=== PATIENT | female | born 1955 | race American Indian/Alaskan Native ===

== ENCOUNTER 2017-07-29 17:00 | Inpatient (IN) | payer MEDICARE ==
[2017-07-29] MEDS ORDERED: TYLENOL PO ONE (18:47)
[2017-07-29] MEDS ORDERED: ULTRAM PO ONE (18:47)
[2017-07-29 19:08] LABS: Basophils % (Auto) 0.2 % (0.0-1.8); Eosinophils % (Auto) 0.1 % (0.0-4.3); Hematocrit 38.9 % (30.3-42.9); Hemoglobin 12.4 gm/dl (10.1-14.3); Lymphocytes # (Auto) 0.8 K/mm3 (1.2-5.4); Lymphocytes % (Auto) 6.3 % (13.4-35.0); Mean Corpuscular HGB Conc 32 % (30-34); Mean Corpuscular Volume 77 fl (79-97); Monocytes # (Auto) 0.9 K/mm3 (0.0-0.8); Monocytes % (Auto) 6.9 % (0.0-7.3); Platelet Count 290 K/mm3 (140-440); Red Blood Count 5.06 M/mm3 (3.65-5.03); Red Cell Distribution Width 14.9 % (13.2-15.2)
[2017-07-29 19:18] LABS: Mean Corpuscular Hemoglobin 25 pg (28-32)
[2017-07-29 19:34] LABS: Calcium 10.3 mg/dL (8.4-10.2)
[2017-07-29] MEDS ORDERED: TORADOL IV ONE (19:36)
[2017-07-29] MEDS ORDERED: NACL 0.9% 1000 ML 1,000 ML IV ONE (19:36)
--- NOTE | 2017-07-29 19:36 | Emergency Department Report ---
- General Chief complaint: Weakness Stated complaint: WEAKNESS Time Seen by Provider: 07/29/17 18:46 Source: patient Mode of arrival: Stretcher Limitations: No Limitations - History of Present Illness Initial comments: 24 hours of new right-sided weakness and pain. Patient is having pain in her right hand and right knee. Patient does have history of gout in that knee. She has weakness on the right side from a residual stroke. Per the daughter, she has had difficulty moving around over the past 24 hours. So, they brought her to the ER for evaluation. Denies chest pain, shortness of breath, or urinary symptoms. - Related Data Allergies Allergy/AdvReac Type Severity Reaction Status Date / Time No Known Allergies Allergy Unverified 07/29/17 17:15 ED Review of Systems ROS: Stated complaint: WEAKNESS Other details as noted in HPI Comment: All other systems reviewed and negative Musculoskeletal: joint swelling, arthralgia, myalgia Neurological: weakness ED Past Medical Hx - Past Medical History Hx Hypertension: Yes Hx CVA: Yes (left side weakness) Hx Diabetes: Yes - Social History Smoking Status: Former Smoker Substance Use Type: None ED Physical Exam - General Limitations: No Limitations General appearance: alert, in no apparent distress - Head Head exam: Present: atraumatic, normocephalic - Eye Eye exam: Present: normal appearance - ENT ENT exam: Present: mucous membranes moist - Neck Neck exam: Present: normal inspection - Respiratory Respiratory exam: Present: normal lung sounds bilaterally. Absent: respiratory distress - Cardiovascular Cardiovascular Exam: Present: regular rate, tachycardia. Absent: systolic murmur, diastolic murmur, rubs, gallop - GI/Abdominal GI/Abdominal exam: Present: soft, normal bowel sounds. Absent: tenderness - Extremities Exam Extremities exam: Present: joint swelling (Rt knee: 30 degrees ROM. Warm. Joint effusion. Diffuse tenderness. Rt hand with NROM, no pain with finger movement. Mild TTP on 4th MCP.) - Back Exam Back exam: Present: normal inspection - Neurological Exam Neurological exam: Present: alert, oriented X3 - Psychiatric Psychiatric exam: Present: normal affect, normal mood - Skin Skin exam: Present: warm, dry, intact, normal color. Absent: rash ED Course Vital Signs 07/29/17 07/29/17 07/29/17 19:38 19:42 20:05 Temperature 98.1 F Respiratory 20 18 Rate - Joint Aspiration/Injection Time Out Performed: Yes Indications: R/O septic arthritis Side of Body: right Joint Aspirated: knee Ultrasound Guidance: No Skin Prep: sterile prep and drape Local Anesthesia Used: Lidocaine 1% Amount of Anesthesia Used (mls): 3 Fluid Obtained: clear (serous) Total Fluid Obtained (mls): 10 Patient Tolerated Procedure: well, no complications Complications: none ED Medical Decision Making - Lab Data Result diagrams: 07/29/17 18:53 07/29/17 18:53 - EKG Data -: EKG Interpreted by Me EKG shows normal: sinus rhythm, intervals, QRS complexes, ST-T waves Rate: tachycardia - EKG Data Interpretation: other (left axis deviation) - Medical Decision Making 61-year-old female with past medical history of hypertension, CVA that presents to ER with new right-sided weakness and right knee pain. Patient is tachycardic on presentation and hypertensive. She has not had her labetalol today. Right knee was performed with limited range of motion. The knee was aspirated at the bedside. It appears to be clear and serous. 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 Patient has elevated white count and infected urine. Concern for sepsis. Patient was given vancomycin and Zosyn, as well as IV fluids. She'll require admission for further management. She does have an elevated troponin at 0.033. EKG shows no evidence of ischemia. She has been given a full dose aspirin for prophylaxis. Likely it is due to demand ischemia. Patient has no respiratory or chest complaints. Critical care time in (mins) excluding proc time.: 45 Critical care attestation.: If time is entered above; I have spent that time in minutes in the direct care of this critically ill patient, excluding procedure time. ED Disposition Clinical Impression: Sepsis, UTI (urinary tract infection), Right knee pain, Elevated troponin Disposition: DC09 OP ADMIT IP TO THIS HOSP Is pt being admited?: Yes Does the pt Need Aspirin: No Condition: Stable
[2017-07-29] MEDS ORDERED: NACL 0.9% 1000 ML 2,000 ML IV ONE (19:43)
[2017-07-29] MEDS ORDERED: BABY ASPIRIN PO ONE (19:43)
[2017-07-29 19:46] LABS: Chol/HDL Ratio 6.64 %
[2017-07-29 19:59] LABS: Bacteria,Urine 1+ /HPF (Negative); Bilirubin,Urine NEG (Negative); Blood,Urine SM (Negative); Color,Urine Yellow (Yellow); Mucus,Urine FEW /HPF; Protein,Urine <15 mg/dL mg/dL (Negative); Urobilinogen,Urine < 2.0 mg/dL (<2.0)
[2017-07-29] MEDS ORDERED: VANCOMYCIN/0.45 NS 1 GM/250 ML 1 GM/250 ML BAG IV ONE (20:00)
[2017-07-29] MEDS ORDERED: ZOSYN/NS 4.5GM/100ML 4.5 GM/100 ML VIAL IV ONE (20:00)
[2017-07-29] MEDS ORDERED: XYLOCAINE 1% 20 mL ONE (20:04)
[2017-07-29 23:06] LABS: Total Cells Counted 100 /mm3
--- NOTE | 2017-07-29 23:59 | Event Note ---
Date: 07/29/17 See dictated H/p in reports
[2017-07-30] MEDS ORDERED: PERCOCET 5/325 PO PRN (02:53)
[2017-07-30] MEDS ORDERED: MORPHINE IV PRN ×2 (02:53→03:06)
[2017-07-30] MEDS ORDERED: SODIUM CHLORIDE FLUSH SYRINGE 10 ML IV PRN ×2 (02:53→03:06)
[2017-07-30] MEDS ORDERED: ZOFRAN IV PRN ×2 (02:53→03:06)
[2017-07-30] MEDS ORDERED: NACL 0.9% 1000 ML 1,000 ML IV SCH (03:00)
[2017-07-30] MEDS ORDERED: TYLENOL PO PRN (03:06)
--- NOTE | 2017-07-30 03:54 | History and Physical Report ---
CHIEF COMPLAINT: 1. Fever. 2. Right-sided weakness. HISTORY OF PRESENT ILLNESS: A 61-year-old female who presents with fever of 101, from home. Here, the temperature was around 98.5. Also, the patient has discomfort in passing urine. Also, the patient has slight increased right-sided weakness, but on interrogation, the patient stated that her weakness is the same as before from the residual hemiparesis from a previous stroke on the left side. The patient has right-sided hemiparesis. No chills. No recent travel, no shortness of breath. PAST MEDICAL HISTORY: Significant for hypertension, CVA in the past with slight weakness on the left side and also some weakness on the right side, also diabetes. SOCIAL HISTORY: Former smoker. PAST SURGICAL HISTORY: None. FAMILY HISTORY: Hypertension. REVIEW OF SYSTEMS: Significant for left-sided weakness and new onset right-sided weakness, but the patient claims that right-sided weakness has resolved completely. No residual weakness. The patient is not sure whether she had some right-sided weakness, but attributes some weakness in the right lower extremity secondary to pain in the right knee. The patient also has history of gout. The patient has fever at home, temperature of 101; here, there was no fever. Otherwise, review of systems is essentially negative. A 14-point review of systems done. PHYSICAL EXAMINATION: GENERAL: Elderly female, cooperative during examination. VITAL SIGNS: Blood pressure was 113/55, temperature is 98.5, pulse is 110, respirations 12. HEENT: Unremarkable. Pupils equal and reactive. NECK: Supple, no lymphadenopathy, no thyromegaly. LUNGS: Clear to auscultation and percussion. Good air entry. CARDIOVASCULAR: S1, S2 heard. No gallop, no murmur, no rub. Apical impulse in the left fifth intercostal space and midclavicular line. ABDOMEN: Soft and benign. No hepatosplenomegaly. No guarding, no rigidity. Hernial orifices are normal. EXTREMITIES: Left-sided hemiparesis present. Right side, normal power. Gait normal. Mentation normal. CENTRAL NERVOUS SYSTEM: Alert and oriented x 4. SKIN: Normal. LABORATORY DATA: Significant for white count of 12,800, troponin is 0.033. Calcium is 10.3. Urine wbc is 136. BUN and creatinine 69 and 1.6. ASSESSMENT AND PLAN: 1. Sepsis secondary to urinary tract infection. The patient initiated on intravenous Rocephin 2 g intravenous piggyback q.24, pending urine cultures and blood cultures. 2. Hypertension. The patient not on any antihypertensives. We will initiate losartan and Coreg if the blood pressure is higher than the normal. 3. Old cerebrovascular accident, physical therapy. The patient has left-sided weakness. No right-sided weakness. 4. Diabetes coverage for now. Check hemoglobin A1c. Initiate oral hypoglycemics or insulin at discharge. 5. Deep venous thrombosis prophylaxis, heparin 5000 q.12. 6. Urinary tract infection as mentioned and sepsis. Intravenous Rocephin 2 g intravenous piggyback q.24. PROGNOSIS: Fair. Probable admission for 2 to 3 days. No stroke workup was ordered as it was not felt necessary. ADDENDUM 1. Acute kidney injury. The patient's BUN and creatinine is 69 and 1.6. IV fluids for now. We will trend BUN and creatinine. 2. Elevated troponin at 0.033, probably secondary to elevated BUN and creatinine. We will trend the troponin. 3. Hyperlipidemia. We will add statins. JOB# [id number] JOB# [id number] VSM/NTS
--- NOTE | 2017-07-30 03:59 | History and Physical Report ---
ADDENDUM 1. Acute kidney injury. The patient's BUN and creatinine is 69 and 1.6. IV fluids for now. We will trend BUN and creatinine. 2. Elevated troponin at 0.033, probably secondary to elevated BUN and creatinine. We will trend the troponin. 3. Hyperlipidemia. We will add statins. JOB# [id number] VSM/NTS
[2017-07-30 07:00] LABS: Basophils % (Auto) 0.2 % (0.0-1.8); Eosinophils % (Auto) 0.3 % (0.0-4.3); Hematocrit 30.8 % (30.3-42.9); Hemoglobin 9.8 gm/dl (10.1-14.3); Lymphocytes # (Auto) 1.3 K/mm3 (1.2-5.4); Lymphocytes % (Auto) 11.8 % (13.4-35.0); Mean Corpuscular HGB Conc 32 % (30-34); Mean Corpuscular Hemoglobin 25 pg (28-32); Mean Corpuscular Volume 77 fl (79-97); Monocytes # (Auto) 0.9 K/mm3 (0.0-0.8); Monocytes % (Auto) 8.8 % (0.0-7.3); Platelet Count 272 K/mm3 (140-440); Red Blood Count 3.99 M/mm3 (3.65-5.03); Red Cell Distribution Width 14.8 % (13.2-15.2)
[2017-07-30 07:24] LABS: Albumin 3.4 g/dL (3.9-5)
[2017-07-30] MEDS ORDERED: K-DUR PO NR (09:18)
[2017-07-30] MEDS: HumaLOG SUB-Q SCH ×4 (09:34→21:29)
[2017-07-30] MEDS: cefTRIAXone 2 GM in NACL 0.9% 20 ML IV SCH (09:34)
[2017-07-30] MEDS: SODIUM CHLORIDE FLUSH SYRINGE 10 ML IV SCH ×2 (09:36→21:30)
[2017-07-30] MEDS ORDERED: SODIUM CHLORIDE FLUSH SYRINGE 10 ML IV SCH (10:00)
[2017-07-30] MEDS ORDERED: PEPCID PO SCH (10:00)
--- NOTE | 2017-07-30 14:31 | Progress Note ---
Assessment and Plan Sepsis likely due to urinary tract infection - Continue IV Rocephin, follow cultures UTI, on a BX, follow urine culture Hypertension, will start home dose of labetelol, will hold ACEI for JYOTSNA Old CVA with right hemiparesis, old do PT eval Diabetes mellitus type 2, ADA diet, SS I, check A1c JYOTSNA, we'll continue IV fluids, monitor renal function, renal US, if no improvement will consult nephrology - could be fron vasomotor nephropathy vs medication induced Hypokalemia, replete and monitor Elevated troponin, likely due to declining renal function and sepsis -We'll continue to trend troponin - Continue aspirin and Lipitor DVT prophylaxis, with haperin Brief history: 61-year-old female with a history of hypertension, CVA with leftt-sided weakness presented to the hospital with fever and dysuria. Hospitalist Physical exam: GENERAL: Elderly female lying on bed appeared to be in no discomfort. HEENT: Normocephalic. Atraumatic. No conjunctival congestion or icterus. Patient has moist mucous membranes. NECK: Supple. Trachea midline. CHEST/LUNGS: Clear to auscultated bilaterally, breathing nonlabored. No wheezes crackles or rhonchi. HEART/CARDIOVASCULAR: Regular in rate and rhythm. S1 and S2 positive. ABDOMEN: Abdomen is soft, nontender. Patient has normal bowel sounds. SKIN: There is no rash. Warm and dry. NEURO: leftt-sided weakness. Follows command. MUSCULOSKELETAL: No joint effusion or tenderness. EXTRIMITY: No edema, no cyanosis or clubbing. PSYCH: Cooperative. Subjective Date of service: 07/30/17 Interval history: Patient seen and examined. Medical records and medication list reviewed. No acute event overnight noted by the RN. Patient denies any chest pain or difficulty breathing. Patient is tolerating diet. Discussed plan of care at bedside with patient. Objective - Constitutional Vitals: Vital Signs - 12hr 07/30/17 07/30/17 07/30/17 04:35 04:43 08:34 Temperature 99.0 F Pulse Rate 92 H 92 H 97 H Respiratory 20 Rate Blood Pressure 130/73 Blood Pressure 119/68 [Right] O2 Sat by Pulse 98 98 97 Oximetry - Labs CBC & Chem 7: 07/30/17 06:06 07/30/17 06:06 Labs: Abnormal lab results 0407/29/17 07/29/17 Range/Units 18:47 18:53 18:53 WBC 12.8 H (4.5-11.0) K/mm3 RBC 5.06 H (3.65-5.03) M/mm3 Hgb (10.1-14.3) gm/dl MCV 77 L (79-97) fl MCH 25 L (28-32) pg Lymph % (Auto) 6.3 L (13.4-35.0) % Russell % (Auto) (0.0-7.3) % Lymph # 0.8 L (1.2-5.4) K/mm3 Russell # 0.9 H (0.0-0.8) K/mm3 Seg Neutrophils % 86.5 H (40.0-70.0) % Seg Neutrophils # 11.1 H (1.8-7.7) K/mm3 Potassium (3.6-5.0) mmol/L Chloride 90.6 L (98-107) mmol/L Carbon Dioxide (22-30) mmol/L BUN 69 H (7-17) mg/dL Creatinine 1.6 H (0.7-1.2) mg/dL Glucose 190 H (65-100) mg/dL Calcium 10.3 H (8.4-10.2) mg/dL Troponin T 0.033 H (0.00-0.029) ng/mL Albumin (3.9-5) g/dL Triglycerides 196 H (2-149) mg/dL Cholesterol 226 H (50-199) mg/dL LDL Cholesterol Direct 149 H (50-130) mg/dL HDL Cholesterol 34 L (40-59) mg/dL Urine WBC (Auto) 136.0 H (0.0-6.0) /HPF 07/30/17 07/30/17 07/30/17 Range/Units 06:06 06:06 06:06 WBC (4.5-11.0) K/mm3 RBC (3.65-5.03) M/mm3 Hgb 9.8 L (10.1-14.3) gm/dl MCV 77 L (79-97) fl MCH 25 L (28-32) pg Lymph % (Auto) 11.8 L (13.4-35.0) % Russell % (Auto) 8.8 H (0.0-7.3) % Lymph # (1.2-5.4) K/mm3 Russell # 0.9 H (0.0-0.8) K/mm3 Seg Neutrophils % 78.9 H (40.0-70.0) % Seg Neutrophils # 8.4 H (1.8-7.7) K/mm3 Potassium 3.0 L D (3.6-5.0) mmol/L Chloride 97.7 L (98-107) mmol/L Carbon Dioxide 33 H (22-30) mmol/L BUN 60 H (7-17) mg/dL Creatinine 1.6 H (0.7-1.2) mg/dL Glucose 164 H (65-100) mg/dL Calcium (8.4-10.2) mg/dL Troponin T 0.071 H D (0.00-0.029) ng/mL Albumin 3.4 L (3.9-5) g/dL Triglycerides (2-149) mg/dL Cholesterol (50-199) mg/dL LDL Cholesterol Direct (50-130) mg/dL HDL Cholesterol (40-59) mg/dL Urine WBC (Auto) (0.0-6.0) /HPF 07/30/17 Range/Units 10:24 WBC (4.5-11.0) K/mm3 RBC (3.65-5.03) M/mm3 Hgb (10.1-14.3) gm/dl MCV (79-97) fl MCH (28-32) pg Lymph % (Auto) (13.4-35.0) % Russell % (Auto) (0.0-7.3) % Lymph # (1.2-5.4) K/mm3 Russell # (0.0-0.8) K/mm3 Seg Neutrophils % (40.0-70.0) % Seg Neutrophils # (1.8-7.7) K/mm3 Potassium (3.6-5.0) mmol/L Chloride (98-107) mmol/L Carbon Dioxide (22-30) mmol/L BUN (7-17) mg/dL Creatinine (0.7-1.2) mg/dL Glucose (65-100) mg/dL Calcium (8.4-10.2) mg/dL Troponin T 0.058 H (0.00-0.029) ng/mL Albumin (3.9-5) g/dL Triglycerides (2-149) mg/dL Cholesterol (50-199) mg/dL LDL Cholesterol Direct (50-130) mg/dL HDL Cholesterol (40-59) mg/dL Urine WBC (Auto) (0.0-6.0) /HPF
[2017-07-30] MEDS ORDERED: NON-FORMULARY (Fenofibrate [Fenofibrate] 160 MG) PO SCH (15:30)
[2017-07-30] MEDS ORDERED: NORMODYNE PO SCH (16:00)
[2017-07-30] MEDS: HALFPRIN EC PO SCH (17:54)
[2017-07-30] MEDS: NORMODYNE PO SCH (17:57)
[2017-07-30] MEDS: PEPCID PO SCH (21:30)
[2017-07-30] MEDS: TRICOR PO SCH (23:06)
[2017-07-30] MEDS: TYLENOL PO PRN (23:24)
[2017-07-31] MEDS: HumaLOG SUB-Q SCH ×4 (07:30→22:28)
[2017-07-31 08:05] LABS: Calcium 8.9 mg/dL (8.4-10.2)
[2017-07-31] MEDS: NORMODYNE PO SCH (10:24)
[2017-07-31] MEDS: PEPCID PO SCH ×2 (10:24→21:17)
[2017-07-31] MEDS: HALFPRIN EC PO SCH (10:24)
[2017-07-31] MEDS: SODIUM CHLORIDE FLUSH SYRINGE 10 ML IV SCH ×2 (10:26→21:20)
[2017-07-31] MEDS: NACL 0.9% 1000 ML 1,000 ML IV SCH (12:30)
--- NOTE | 2017-07-31 13:09 | Progress Note ---
Assessment and Plan Sepsis likely due to urinary tract infection - Continue IV Rocephin, urine culture was not obtained, will order - blood cx negative so far. will repeat since spiked fever - will also consult ID UTI, on a BX, follow urine culture Hypertension, will start home dose of labetelol, will hold ACEI for JYOTSNA Old CVA with right hemiparesis, old do PT eval Diabetes mellitus type 2, ADA diet, SS I, check A1c JYOTSNA, we'll continue IV fluids, monitor renal function, follow renal US, if no improvement will consult nephrology - could be fron vasomotor nephropathy vs medication induced - renal function remained stable Hypokalemia, replete and monitor Elevated troponin, likely due to declining renal function and sepsis - trended troponin - Continue aspirin and Lipitor - preserved Ef on 2d echo - will consult cardiology Right knee with swelling - possible gout vs arthritis swelling - arthocenthesis done in the ER with + white count - cont tylenol as needed for pain, start on colchicine Physical debility. will consult PT DVT prophylaxis, with svetlana Brief history: 61-year-old female with a history of hypertension, CVA with leftt-sided weakness presented to the hospital with fever and dysuria. Not to have right knee swelling and UTI. Started on abx and s/p arthocethesis in the ER. Hospitalist Physical exam: GENERAL: Elderly female lying on bed appeared to be in no discomfort. HEENT: Normocephalic. Atraumatic. No conjunctival congestion or icterus. Patient has moist mucous membranes. NECK: Supple. Trachea midline. CHEST/LUNGS: Clear to auscultated bilaterally, breathing nonlabored. No wheezes crackles or rhonchi. HEART/CARDIOVASCULAR: Regular in rate and rhythm. S1 and S2 positive. ABDOMEN: Abdomen is soft, nontender. Patient has normal bowel sounds. SKIN: There is no rash. Warm and dry. NEURO: leftt-sided weakness. Follows command. MUSCULOSKELETAL: No joint effusion or tenderness. EXTRIMITY: No edema, no cyanosis or clubbing. PSYCH: Cooperative. Subjective Date of service: 07/31/17 Interval history: Patient seen and examined. Medical records and medication list reviewed. No acute event overnight noted by the RN. Patient denies any chest pain or difficulty breathing. Patient is tolerating diet. spiked fever this am, c/o of rt knee swelling intermittently for year Discussed plan of care at bedside with patient. Objective - Constitutional Vitals: Vital Signs - 12hr 07/31/17 07/31/17 04:39 10:02 Temperature 98.6 F 99.7 F H Pulse Rate 83 98 H Respiratory 18 18 Rate Blood Pressure 105/56 130/66 O2 Sat by Pulse 96 97 Oximetry - Labs CBC & Chem 7: 07/30/17 06:06 07/31/17 07:08 Labs: Abnormal lab results 07/30/17 07/30/17 07/30/17 Range/Units 12:16 14:40 16:59 Potassium (3.6-5.0) mmol/L Carbon Dioxide (22-30) mmol/L BUN (7-17) mg/dL Creatinine (0.7-1.2) mg/dL Glucose (65-100) mg/dL POC Glucose 216 H 216 H (70-105) Troponin T 0.062 H (0.00-0.029) ng/mL 07/30/17 07/31/17 07/31/17 Range/Units 21:22 06:28 07:08 Potassium 3.4 L (3.6-5.0) mmol/L Carbon Dioxide 31 H (22-30) mmol/L BUN 53 H (7-17) mg/dL Creatinine 1.6 H (0.7-1.2) mg/dL Glucose 167 H (65-100) mg/dL POC Glucose 212 H 160 H (70-105) Troponin T (0.00-0.029) ng/mL
[2017-07-31] MEDS: cefTRIAXone 2 GM in NACL 0.9% 20 ML IV SCH (13:36)
[2017-07-31] MEDS: TRICOR PO SCH ×2 (15:09→21:17)
--- NOTE | 2017-07-31 16:52 | Ultrasound Report ---
FINAL REPORT EXAM: US RENAL BILAT HISTORY: ckd TECHNIQUE: Ultrasound examination of the kidneys PRIORS: None. FINDINGS: Visualized right kidney: 12.5 x 6.9 x 6.1 cm. Visualized left kidney: 5.4 x 2.0 x 2.6 cm. Renal cortical thickness: 13 mm right and 8 mm left Focal lesion: Simple appearing cysts in right renal upper and lower poles each measuring 2.6 cm Calculus: None Hydronephrosis: None Perinephric fluid: None Urinary bladder: No evidence of focal abnormality in visible portion. IMPRESSION: Much smaller left kidney may be from atrophy Simple appearing cyst in right kidney
--- NOTE | 2017-07-31 16:56 | Consultation ---
History of Present Illness - Reason for Consult Consult date: 07/31/17 SIRS/right knee swelling Requesting physician: HUMBLE BUTLER - History of Present Illness 61 years old female with history of hypertension, gout and former tobacco abuse ; admitted on 07/29/2017 due to a four-hour history of right-sided weakness and pain. Patient has been complaining of right knee pain and hand pain which she believed it was due to gout. She reports several episodes of right knee swelling due to gouty attacks. She reports subjective fever for the last 3 days. Denies respiratory or urinary symptoms. In the ED, initial temperature 98.1, heart rate 113, respiration 20, O2 sat 94, blood pressure 133/59. Initial white count 12.8. Hemoglobin 12.4. Platelets 290. Creatinine 1.6. Urinalysis showed 136 white blood cells and large leukocyte esterase. Patient underwent drainage of the right knee, synovial fluid which show a cloudy fluid with 2994 white blood cells and 90% segs. Renal ultrasound showed small left kidney. Microbiology: Blood cultures: 07/29 ngtd Synovial cultures: pending Current Antimicrobials: Ceftriaxone 07/30 Past History Past Medical History: hypertension, other (Gout) Past Surgical History: No surgical history Social history: no significant social history Medications and Allergies Allergies Allergy/AdvReac Type Severity Reaction Status Date / Time No Known Allergies Allergy Unverified 07/29/17 17:15 Home Medications Medication Instructions Recorded Confirmed Last Taken Type Benazepril HCl 100 mg PO DAILY 07/30/17 07/30/17 1 Week Ago History ~07/23/17 Fenofibrate 160 mg PO DAILY 07/30/17 07/30/17 1 Week Ago History ~07/23/17 Labetalol HCl 40 mg PO DAILY 07/30/17 07/30/17 1 Day Ago History ~07/29/17 Active Meds: Active Medications Acetaminophen (Tylenol) 650 mg PO Q4H PRN PRN Reason: Pain MILD(1-3)/Fever >100.5/SALAS Last Admin: 07/30/17 23:24 Dose: 650 mg Aspirin (Halfprin Ec) 81 mg PO QDAY [facility] Last Admin: 07/31/17 10:24 Dose: 81 mg Atorvastatin Calcium (Lipitor) 40 mg PO QHS [facility] Last Admin: 07/30/17 21:30 Dose: 40 mg Famotidine (Pepcid) 10 mg PO BID [facility] Last Admin: 07/31/17 10:24 Dose: 10 mg Fenofibrate (Tricor) 145 mg PO DAILY@2200 SHIRLEY Sodium Chloride (Nacl 0.9% 1000 Ml) 1,000 mls @ 100 mls/hr IV DIRECT [facility] Last Admin: 07/31/17 12:30 Dose: 100 mls/hr Ceftriaxone Sodium 2 gm/ (Sodium Chloride) 20 mls @ 20 mls/10 min IV Q24HR [facility] ; Protocol Last Admin: 07/31/17 13:36 Dose: 20 mls/10 min Insulin Human Lispro (Humalog) 0 unit SUB-Q ACHS [facility]; Protocol Last Admin: 07/31/17 13:36 Dose: 3 unit Labetalol HCl (Normodyne) 50 mg PO QDAY [facility] Last Admin: 07/31/17 10:24 Dose: 50 mg Morphine Sulfate (Morphine) 2 mg IV Q4H PRN PRN Reason: Pain, Moderate (4-6) Ondansetron HCl (Zofran) 4 mg IV Q8H PRN PRN Reason: Nausea And Vomiting Oxycodone/Acetaminophen (Percocet 5/325) 1 tab PO Q6H PRN PRN Reason: Pain, Moderate (4-6) Last Admin: 07/31/17 10:10 Dose: 1 tab Sodium Chloride (Sodium Chloride Flush Syringe 10 Ml) 10 ml IV BID [facility] Last Admin: 07/31/17 10:26 Dose: 10 ml Sodium Chloride (Sodium Chloride Flush Syringe 10 Ml) 10 ml IV PRN PRN PRN Reason: LINE FLUSH Review of Systems All systems: negative (as per HPI. 10 point review systems negative) Physical Examination - Physical Exam Narrative exam: General appearance: Alert in NAD, conversant Eyes: anicteric sclerae, moist conjunctivae; no lid-lag; PERRLA HENT: Atraumatic; oropharynx clear with moist mucous membranes and no mucosal ulcerations/no oral thrush; normal hard and soft palate. Normal external ears. Neck: Trachea midline; supple, no thyromegaly or lymphadenopathy Lungs: CTA, with normal respiratory effort and no intercostal retractions CV: RRR, no murmurs Abdomen: Soft, non-tender; no masses or hepatosplenomegaly Extremities: +right knee swelling Skin: Normal temperature, turgor and texture; no rash, ulcers or subcutaneous nodules Psych: Appropriate affect, alert and oriented to person, place and time. Neuro: alert and oriented x 3. Moving all extermities Lines: No CVL / PICC - Constitutional Vitals: Vital Signs Temp Pulse Resp BP Pulse Ox 99.7 F H 98 H 18 130/66 97 07/31/17 10:02 07/31/17 10:02 07/31/17 10:02 07/31/17 10:02 07/31/17 10:02 Temperature -Last 24 Hours Temperature 99.7 F Temperature 98.6 F Temperature 100.2 F Temperature 100.1 F Temperature 98.1 F Results - Labs CBC & Chem 7: 07/30/17 06:06 07/31/17 07:08 Labs: Abnormal lab results 07/30/17 07/30/17 07/31/17 Range/Units 16:59 21:22 06:28 Potassium (3.6-5.0) mmol/L Carbon Dioxide (22-30) mmol/L BUN (7-17) mg/dL Creatinine (0.7-1.2) mg/dL Glucose (65-100) mg/dL POC Glucose 216 H 212 H 160 H (70-105) 07/31/17 07/31/17 Range/Units 07:08 11:51 Potassium 3.4 L (3.6-5.0) mmol/L Carbon Dioxide 31 H (22-30) mmol/L BUN 53 H (7-17) mg/dL Creatinine 1.6 H (0.7-1.2) mg/dL Glucose 167 H (65-100) mg/dL POC Glucose 230 H (70-105) Assessment and Plan Assessment: 1) Sepsis: Present on admission, manifested by fever at home, tachycardia, leukocytosis. Etiology most likely UTI +/- gouty attack. 2) UTI: urine culture was not sent 3) Recurrent right knee edema: ? gout vs. septic knee -synovial fluid which show a cloudy fluid with 2994 white blood cells and 90 % segs. 4) Hypertension 5) Gout Plan: -follow-up blood cultures and synovial fluid cx -send urine culture -obtain C-reactive protein (CRP) and uric acid -synovial fluid was not sent for crystal -XR right knee -continue ceftriaxone Thank you for your consultation, will follow up with you. Verna Jacobson MD Infectious Diseases Specialist [facility] M [phone] O [phone]
[2017-07-31] MEDS: TYLENOL PO PRN (21:18)
[2017-07-31] MEDS: COLCRYS PO SCH (22:25)
[2017-08-01] MEDS: NACL 0.9% 1000 ML 1,000 ML IV SCH (02:00)
[2017-08-01] MEDS: HALFPRIN EC PO SCH (09:03)
[2017-08-01] MEDS: NORMODYNE PO SCH ×2 (09:03→22:32)
[2017-08-01] MEDS: PEPCID PO SCH ×2 (09:03→22:32)
[2017-08-01] MEDS: COLCRYS PO SCH ×2 (09:03→22:33)
[2017-08-01] MEDS: cefTRIAXone 2 GM in NACL 0.9% 20 ML IV SCH (09:03)
[2017-08-01] MEDS: HumaLOG SUB-Q SCH ×5 (09:09→22:33)
[2017-08-01] MEDS: SODIUM CHLORIDE FLUSH SYRINGE 10 ML IV SCH ×2 (09:10→22:40)
--- NOTE | 2017-08-01 12:10 | Consultation ---
History of Present Illness Consult date: 08/01/17 Requesting physician: HUMBLE BUTLER Consult reason: elevated troponin History of present illness: This is a 61-year-old female with history of stroke with left-sided paresis on Coumadin hypertension presents with fever so SIRS and elevated troponin and acute renal insufficiency has been treated medically patient will troponin but denies any chest pain with normal LV function and no palpitations no syncope patient was at home and is able to sit up with a sitter is nonambulatory Past History Past Medical History: hypertension, stroke, other (Gout) Past Surgical History: No surgical history Social history: no significant social history Medications and Allergies Allergies Allergy/AdvReac Type Severity Reaction Status Date / Time No Known Allergies Allergy Unverified 07/29/17 17:15 Home Medications Medication Instructions Recorded Confirmed Last Taken Type Benazepril HCl 40 mg PO DAILY 07/30/17 08/01/17 1 Week Ago History ~07/23/17 Fenofibrate 160 mg PO DAILY 07/30/17 07/30/17 1 Week Ago History ~07/23/17 Labetalol HCl 100 mg PO BID 07/30/17 08/01/17 1 Day Ago History ~07/29/17 Active Meds: Active Medications Acetaminophen (Tylenol) 650 mg PO Q4H PRN PRN Reason: Pain MILD(1-3)/Fever >100.5/SALAS Last Admin: 07/31/17 21:18 Dose: 650 mg Aspirin (Halfprin Ec) 81 mg PO QDAY [facility] Last Admin: 08/01/17 09:03 Dose: 81 mg Atorvastatin Calcium (Lipitor) 40 mg PO QHS [facility] Last Admin: 07/31/17 21:17 Dose: 40 mg Colchicine (Colcrys) 0.6 mg PO BID [facility] Last Admin: 08/01/17 09:03 Dose: 0.6 mg Famotidine (Pepcid) 10 mg PO BID [facility] Last Admin: 08/01/17 09:03 Dose: 10 mg Fenofibrate (Tricor) 145 mg PO DAILY@2200 [facility] Last Admin: 07/31/17 21:17 Dose: 145 mg Sodium Chloride (Nacl 0.9% 1000 Ml) 1,000 mls @ 100 mls/hr IV DIRECT [facility] Last Admin: 08/01/17 02:00 Dose: 100 mls/hr Ceftriaxone Sodium 2 gm/ (Sodium Chloride) 20 mls @ 20 mls/10 min IV Q24HR [facility] ; Protocol Last Admin: 08/01/17 09:03 Dose: 20 mls/10 min Insulin Human Lispro (Humalog) 0 unit SUB-Q ACHS [facility]; Protocol Last Admin: 08/01/17 09:09 Dose: 2 unit Labetalol HCl (Normodyne) 50 mg PO QDAY [facility] Last Admin: 08/01/17 09:03 Dose: 50 mg Morphine Sulfate (Morphine) 2 mg IV Q4H PRN PRN Reason: Pain, Moderate (4-6) Ondansetron HCl (Zofran) 4 mg IV Q8H PRN PRN Reason: Nausea And Vomiting Oxycodone/Acetaminophen (Percocet 5/325) 1 tab PO Q6H PRN PRN Reason: Pain, Moderate (4-6) Last Admin: 07/31/17 10:10 Dose: 1 tab Sodium Chloride (Sodium Chloride Flush Syringe 10 Ml) 10 ml IV BID [facility] Last Admin: 08/01/17 09:10 Dose: 10 ml Sodium Chloride (Sodium Chloride Flush Syringe 10 Ml) 10 ml IV PRN PRN PRN Reason: LINE FLUSH Review of Systems All systems: negative Physical Examination Vital Signs Resp 20 07/29/17 19:38 General appearance: no acute distress, mild distress HEENT: Positive: PERRL Neck: Positive: neck supple, trachea midline Cardiac: Positive: Reg Rate and Rhythm, S1/S2. Negative: Audible Murmur Lungs: Positive: clear to auscultation, Normal Breath Sounds Neuro: Positive: Other (E) Abdomen: Positive: Soft Extremities: Present: normal. Absent: edema Results 07/30/17 06:06 07/31/17 07:08 - Imaging and Cardiology Echo: report reviewed (normal function no significant regurgitation) EKG interpretations - Telemetry EKG Rhythm: Sinus Tachycardia (sinus tacycardia lad lafb non specific st-t) Assessment and Plan SIRS Acute renal insufficiency Hypertension nstemi type 2 cva left sided weakness Recommend BP control with beta blockers continue Coumadin as patient states daily antilipid leixscan in am
[2017-08-01 12:50] LABS: BUN/Creatinine Ratio 26; Blood Urea Nitrogen 29 mg/dL (7-17); Calcium 8.5 mg/dL (8.4-10.2); Hemolysis Index 1
[2017-08-01 12:52] LABS: Platelet Count 315 K/mm3 (140-440)
[2017-08-01 12:56] LABS: Hematocrit 29.7 % (30.3-42.9); Hemoglobin 9.8 gm/dl (10.1-14.3); Mean Corpuscular HGB Conc 33 % (30-34); Mean Corpuscular Volume 76 fl (79-97); Red Blood Count 3.91 M/mm3 (3.65-5.03); Red Cell Distribution Width 14.8 % (13.2-15.2)
[2017-08-01 12:58] LABS: Mean Corpuscular Hemoglobin 25 pg (28-32)
[2017-08-01] MEDS ORDERED: WARFARIN 3 MG PO SCH (13:30)
--- NOTE | 2017-08-01 15:12 | Progress Note ---
Assessment and Plan Sepsis likely due to urinary tract infection - Continue IV Rocephin, urine culture was not obtained, will order - blood cx negative so far. Repeated since spiked fever - ID following UTI, on abx, gm negative rods urine culture Hypertension, will cont home dose of labetelol, will hold ACEI for JYOTSNA Old CVA with right hemiparesis, ordered PT eval Diabetes mellitus type 2, ADA diet, SSI, A1c 5.3 JYOTSNA, we'll continue IV fluids, monitor renal function, follow renal US, if no improvement will consult nephrology - could be fron vasomotor nephropathy vs medication induced - renal function remained stable, Cr 1.3 today Hypokalemia, replete and monitor Elevated troponin, likely due to declining renal function and sepsis - trended troponin - Continue aspirin and Lipitor - preserved Ef on 2d echo - Consulted cardiology, plan for stress test tomorrow Right knee with swelling - possible gout - arthocenthesis done in the ER with + white count - cont tylenol as needed for pain, started on colchicine - elevated uric acid level Physical debility. consulted PT DVT prophylaxis, with haperin Brief history: 61-year-old female with a history of hypertension, CVA with leftt-sided weakness presented to the hospital with fever and dysuria. Not to have right knee swelling and UTI. Started on abx and s/p arthocethesis of the right knee in the ER. Hospitalist Physical exam: GENERAL: Elderly female lying on bed appeared to be in no discomfort. HEENT: Normocephalic. Atraumatic. No conjunctival congestion or icterus. Patient has moist mucous membranes. NECK: Supple. Trachea midline. CHEST/LUNGS: Clear to auscultated bilaterally, breathing nonlabored. No wheezes crackles or rhonchi. HEART/CARDIOVASCULAR: Regular in rate and rhythm. S1 and S2 positive. ABDOMEN: Abdomen is soft, nontender. Patient has normal bowel sounds. SKIN: There is no rash. Warm and dry. NEURO: leftt-sided weakness. Follows command. MUSCULOSKELETAL: No joint effusion or tenderness. EXTRIMITY: No edema, no cyanosis or clubbing. PSYCH: Cooperative. Subjective Date of service: 08/01/17 Interval history: Patient seen and examined. Medical records and medication list reviewed. No acute event overnight noted by the RN. Patient denies any chest pain or difficulty breathing. Patient is tolerating diet. cont to spike fever , c/o of rt knee swelling intermittently for year Discussed plan of care at bedside with patient. Objective - Constitutional Vitals: Vital Signs - 12hr 08/01/17 08/01/17 08/01/17 04:25 07:08 08:39 Temperature 99.9 F H 99.8 F H Pulse Rate 84 86 87 Respiratory 18 18 Rate Blood Pressure 128/71 153/78 O2 Sat by Pulse 93 96 Oximetry 08/01/17 08/01/17 08/01/17 09:03 09:07 10:00 Temperature 100.3 F H Pulse Rate 96 H 92 H Respiratory Rate Blood Pressure 140/77 140/77 O2 Sat by Pulse Oximetry 08/01/17 12:13 Temperature 97.9 F Pulse Rate Respiratory 18 Rate Blood Pressure 142/74 O2 Sat by Pulse Oximetry - Labs CBC & Chem 7: 08/01/17 12:17 08/01/17 12:17 Labs: Abnormal lab results 07/29/17 07/31/17 07/31/17 Range/Units 20:16 17:31 19:16 Hgb (10.1-14.3) gm/dl Hct (30.3-42.9) % MCV (79-97) fl MCH (28-32) pg BUN (7-17) mg/dL Glucose (65-100) mg/dL POC Glucose 195 H (70-105) Uric Acid (3.5-7.6) mg/dL C-Reactive Protein 20.00 H (0.00-1.30) mg/dL Fluid Glucose 162 H (40-70) mg/dL 07/31/17 07/31/17 08/01/17 Range/Units 19:16 21:46 05:22 Hgb (10.1-14.3) gm/dl Hct (30.3-42.9) % MCV (79-97) fl MCH (28-32) pg BUN (7-17) mg/dL Glucose (65-100) mg/dL POC Glucose 228 H 178 H (70-105) Uric Acid 9.5 H (3.5-7.6) mg/dL C-Reactive Protein (0.00-1.30) mg/dL Fluid Glucose (40-70) mg/dL 08/01/17 08/01/17 08/01/17 Range/Units 12:17 12:17 12:19 Hgb 9.8 L (10.1-14.3) gm/dl Hct 29.7 L (30.3-42.9) % MCV 76 L (79-97) fl MCH 25 L (28-32) pg BUN 29 H (7-17) mg/dL Glucose 196 H (65-100) mg/dL POC Glucose 207 H (70-105) Uric Acid (3.5-7.6) mg/dL C-Reactive Protein (0.00-1.30) mg/dL Fluid Glucose (40-70) mg/dL
[2017-08-01 16:40] LABS: INR 1.27 (0.87-1.13)
[2017-08-01] MEDS: HumuLIN R SUB-Q SCH ×2 (17:37→22:34)
[2017-08-01] MEDS: COUMADIN PO SCH (17:42)
[2017-08-01] MEDS: TRICOR PO SCH (22:31)
[2017-08-02] MEDS: HumaLOG SUB-Q SCH ×4 (07:56→23:30)
[2017-08-02] MEDS: HumuLIN R SUB-Q SCH ×4 (07:57→23:14)
[2017-08-02] MEDS ORDERED: LEXISCAN IV ONE ×2 (08:04→08:09)
[2017-08-02] MEDS: COLCRYS PO SCH ×2 (11:03→23:29)
--- NOTE | 2017-08-02 11:35 | Progress Note ---
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 has not been tested, will setup to followup in [facility] after rehab. increase labetalol 200 mg twice a day hold Lane inhibitors and monitor blood pressure patient had no significant ischemia on stress test Subjective Date of service: 08/02/17 Principal diagnosis: abnl trop Interval history: pt has intermittent right sided pain. Objective Vital Signs Temp Pulse Resp BP Pulse Ox 08/02/17 09:43 100 H 149/72 08/02/17 09:42 102 H 151/69 08/02/17 09:41 104 H 147/74 08/02/17 09:40 100 H 155/77 08/02/17 09:39 103 H 149/78 08/02/17 09:11 83 156/81 08/02/17 05:01 98.9 F 78 18 134/72 94 08/02/17 00:11 99.8 F H 85 18 161/77 94 08/01/17 22:32 93 H 147/68 08/01/17 19:48 101.5 F H 93 H 18 147/68 97 08/01/17 16:20 99.7 F H 94 H 18 136/73 94 08/01/17 12:13 97.9 F 18 142/74 - Physical Examination General: No Apparent Distress HEENT: Positive: PERRL Neck: Positive: neck supple, trachea midline Cardiac: Positive: Reg Rate and Rhythm Lungs: Positive: clear to auscultation Neuro: Positive: Other (E) Abdomen: Positive: Soft Extremities: Present: normal. Absent: edema - Labs and Meds Coagulation 08/01/17 Range/Units 16:01 PT 16.6 H (12.2-14.9) Sec. INR 1.27 H (0.87-1.13) CBC 08/01/17 Range/Units 12:17 WBC 8.8 (4.5-11.0) K/mm3 RBC 3.91 (3.65-5.03) M/mm3 Hgb 9.8 L (10.1-14.3) gm/dl Hct 29.7 L (30.3-42.9) % Plt Count 315 (140-440) K/mm3 Comprehensive Metabolic Panel 08/01/17 Range/Units 12:17 Sodium 138 (137-145) mmol/L Potassium 3.8 (3.6-5.0) mmol/L Chloride 99.2 (98-107) mmol/L Carbon Dioxide 27 (22-30) mmol/L BUN 29 H (7-17) mg/dL Creatinine 1.1 (0.7-1.2) mg/dL Glucose 196 H (65-100) mg/dL Calcium 8.5 (8.4-10.2) mg/dL - Imaging and Cardiology Pharmacologic stress test: report reviewed (no signficant ischemia noted normal lv function) Echo: report reviewed (normal function no significant regurgitation)
[2017-08-02] MEDS ORDERED: CITRATE OF MAGNESIA PO ONE ×2 (12:00→16:00)
--- NOTE | 2017-08-02 12:17 | Treadmill Report ---
NUCLEAR PERFUSION STUDY REASON FOR STUDY: Abnormal troponin. READING PHYSICIAN: Duane Camejo MD IMAGING PROTOCOL: The patient received 10 mCi of Technetium 99m Tetrofosmin for resting image and 28 mCi of Technetium 99m Tetrofosmin for stress imaging. The imaging for the whole procedure was completed 30-90 minutes following the initial injection of Technetium 99m tetrofosmin. The SPECT imaging in the 180 degree arc was performed in the right anterior oblique projection. Computerized reconstruction of the images was performed for analysis. IMAGING RESULTS: Normal cavity size from stress to rest. Normal distribution of radionuclide in the anterior, inferior, septal, and apical regions. Gated SPECT, EF 65% with no wall motion abnormality. The patient infused Lexiscan with no EKG changes. SUMMARY: 1. Negative Lexiscan EKG. 2. Normal rest and stress myocardial perfusion scan. No significant ischemia. No wall motion abnormalities. Gated SPECT, EF 65%. JOB# [id number] ANNA/ELLIOTT
[2017-08-02 13:20] LABS: INR 1.29 (0.87-1.13)
[2017-08-02 13:32] LABS: BUN/Creatinine Ratio 25; Blood Urea Nitrogen 25 mg/dL (7-17); Calcium 8.6 mg/dL (8.4-10.2); Hemolysis Index 0
--- NOTE | 2017-08-02 14:35 | Progress Note ---
Assessment and Plan Sepsis likely due to urinary tract infection - Continue IV Rocephin, urine culture growing gm negative rods - blood cx negative so far. Repeated again since spiked fever, will follow - ID following UTI, on abx, gm negative rods urine culture Hypertension,increased dose of labetelol, will cont to hold ACEI for JYOTSNA Old CVA with right hemiparesis, ordered PT eval Diabetes mellitus type 2, ADA diet, SSI, A1c 5.3 JYOTSNA, we'll continue IV fluids, monitor renal function, follow renal US, if no improvement will consult nephrology - could be fron vasomotor nephropathy vs medication induced - renal function remained stable, Cr level normal since 08/01 Hypokalemia, replete and monitor Elevated troponin, likely due to declining renal function and sepsis - Continue aspirin and Lipitor - preserved Ef on 2d echo - Consulted cardiology, negative stress test today Right knee with swelling - possible gout - arthocenthesis done in the ER with + white count - cont tylenol as needed for pain, started on colchicine - elevated uric acid level Physical debility. consulted PT, patient wants to go for JHON DVT prophylaxis, with svetlana Brief history: 61-year-old female with a history of hypertension, CVA with leftt-sided weakness presented to the hospital with fever and dysuria. Not to have right knee swelling and UTI. Started on abx and s/p arthocethesis of the right knee in the ER. Hospitalist Physical exam: GENERAL: Elderly female lying on bed appeared to be in no discomfort. HEENT: Normocephalic. Atraumatic. No conjunctival congestion or icterus. Patient has moist mucous membranes. NECK: Supple. Trachea midline. CHEST/LUNGS: Clear to auscultated bilaterally, breathing nonlabored. No wheezes crackles or rhonchi. HEART/CARDIOVASCULAR: Regular in rate and rhythm. S1 and S2 positive. ABDOMEN: Abdomen is soft, nontender. Patient has normal bowel sounds. SKIN: There is no rash. Warm and dry. NEURO: leftt-sided weakness. Follows command. MUSCULOSKELETAL: No joint effusion or tenderness. EXTRIMITY: No edema, no cyanosis or clubbing. PSYCH: Cooperative. Subjective Date of service: 08/02/17 Principal diagnosis: abnl trop Interval history: Patient seen and examined. Medical records and medication list reviewed. No acute event overnight noted by the RN. Patient denies any chest pain or difficulty breathing. Patient is tolerating diet. Discussed plan of care at bedside with patient and family. Objective - Constitutional Vitals: Vital Signs - 12hr 08/02/17 08/02/17 08/02/17 05:01 08:01 08:02 Temperature 98.9 F Pulse Rate 78 84 79 Respiratory 18 18 Rate Blood Pressure 134/72 142/74 O2 Sat by Pulse 94 94 93 Oximetry 08/02/17 08/02/17 08/02/17 09:11 09:39 09:40 Temperature Pulse Rate 83 103 H 100 H Respiratory Rate Blood Pressure 156/81 149/78 155/77 O2 Sat by Pulse Oximetry 08/02/17 08/02/17 08/02/17 09:41 09:42 09:43 Temperature Pulse Rate 104 H 102 H 100 H Respiratory Rate Blood Pressure 147/74 151/69 149/72 O2 Sat by Pulse Oximetry - Labs CBC & Chem 7: 08/01/17 12:17 08/02/17 11:34 Labs: Abnormal lab results 08/01/17 08/01/17 08/01/17 Range/Units 16:01 16:31 21:35 PT 16.6 H (12.2-14.9) Sec. INR 1.27 H (0.87-1.13) BUN (7-17) mg/dL Glucose (65-100) mg/dL POC Glucose 254 H 194 H (70-105) 08/02/17 08/02/17 08/02/17 Range/Units 06:12 11:34 11:34 PT 16.8 H (12.2-14.9) Sec. INR 1.29 H (0.87-1.13) BUN 25 H (7-17) mg/dL Glucose 162 H (65-100) mg/dL POC Glucose 158 H (70-105)
--- NOTE | 2017-08-02 15:25 | Progress Note ---
Assessment and Plan Assessment: 1) Sepsis: still fever. Leukocytosis resolved. Etiology most likely UTI +/- gouty attack. -CRP=20 -Uric acid 9.5 2) UTI: urine culture + E coli. Renal US simple cyst right kidney 3) Recurrent right knee edema: ? gout vs. septic knee -synovial fluid which show a cloudy fluid with 2994 white blood cells and 90 % segs. 4) Hypertension 5)Gout Plan: -follow-up repeat blood cultures -synovial fluid was not sent for crystal -continue ceftriaxone D4 -check CXR -monitor fever Thank you for your consultation, will follow up with you. Verna Jacobson MD Infectious Diseases Specialist [facility] [id number] [phone] Subjective Date of service: 08/02/17 Principal diagnosis: abnl trop Interval history: Feels better no complaints. Had a fever 101.5 last night. Microbiology: Blood cultures: 07/29 ngtd 08/01 ngtd Synovial cultures: neg urine cx: 07/31 E coli pansen Current Antimicrobials: Ceftriaxone 07/30 Objective - Exam Narrative Exam: General appearance: Alert in NAD, conversant Eyes: anicteric sclerae, moist conjunctivae; no lid-lag; PERRLA HENT: Atraumatic; oropharynx clear with moist mucous membranes and no mucosal ulcerations/no oral thrush; normal hard and soft palate. Normal external ears. Neck: Trachea midline; supple, no thyromegaly or lymphadenopathy Lungs: CTA, with normal respiratory effort and no intercostal retractions CV: RRR, no murmurs Abdomen: Soft, non-tender; no masses or hepatosplenomegaly Extremities: +right knee swelling less Skin: Normal temperature, turgor and texture; no rash, ulcers or subcutaneous nodules Psych: Appropriate affect, alert and oriented to person, place and time. Neuro: alert and oriented x 3. Moving all extermities Lines: No CVL / PICC - Constitutional Vitals: Vital Signs Temp Pulse Resp BP Pulse Ox 98.9 F 100 H 18 149/72 93 08/02/17 05:01 08/02/17 09:43 08/02/17 08:01 08/02/17 09:43 08/02/17 08:02 Temperature -Last 24 Hours Temperature 98.9 F Temperature 99.8 F Temperature 101.5 F Temperature 99.7 F - Labs CBC & Chem 7: 08/01/17 12:17 08/02/17 11:34 Labs: Abnormal lab results 08/01/17 08/01/17 08/01/17 Range/Units 16:01 16:31 21:35 PT 16.6 H (12.2-14.9) Sec. INR 1.27 H (0.87-1.13) BUN (7-17) mg/dL Glucose (65-100) mg/dL POC Glucose 254 H 194 H (70-105) 08/02/17 08/02/17 08/02/17 Range/Units 06:12 11:34 11:34 PT 16.8 H (12.2-14.9) Sec. INR 1.29 H (0.87-1.13) BUN 25 H (7-17) mg/dL Glucose 162 H (65-100) mg/dL POC Glucose 158 H (70-105)
[2017-08-02] MEDS: NORMODYNE PO SCH ×2 (17:00→23:31)
[2017-08-02] MEDS: PEPCID PO SCH ×2 (17:02→23:30)
[2017-08-02] MEDS: COUMADIN PO SCH (17:07)
[2017-08-02] MEDS: HALFPRIN EC PO SCH (17:07)
[2017-08-02] MEDS: SODIUM CHLORIDE FLUSH SYRINGE 10 ML IV SCH ×2 (17:15→23:33)
[2017-08-02] MEDS: cefTRIAXone 2 GM in NACL 0.9% 20 ML IV SCH (17:17)
--- NOTE | 2017-08-02 17:47 | XRay Report ---
FINAL REPORT EXAM: XR CHEST 1V AP HISTORY: eval for pneumonia, new fever TECHNIQUE: upright single view chest PRIORS: None. FINDINGS: Cardiac and mediastinal contours are unremarkable. No focal pulmonary infiltrate is identified. No pleural fluid collection seen. Pulmonary vasculature is unremarkable. IMPRESSION: Negative single-view chest
[2017-08-02] MEDS: TRICOR PO SCH (23:29)
[2017-08-03 07:20] LABS: INR 1.42 (0.87-1.13)
[2017-08-03 07:29] LABS: BUN/Creatinine Ratio 22; Blood Urea Nitrogen 22 mg/dL (7-17); Calcium 8.7 mg/dL (8.4-10.2); Hemolysis Index 4
[2017-08-03] MEDS: HumaLOG SUB-Q SCH ×2 (08:36→12:41)
[2017-08-03] MEDS: HumuLIN R SUB-Q SCH ×4 (08:36→22:46)
[2017-08-03] MEDS: COLCRYS PO SCH ×2 (09:08→22:06)
[2017-08-03] MEDS: PEPCID PO SCH ×2 (09:08→22:06)
[2017-08-03] MEDS: HALFPRIN EC PO SCH (09:08)
[2017-08-03] MEDS: cefTRIAXone 2 GM in NACL 0.9% 20 ML IV SCH (09:09)
[2017-08-03] MEDS: SODIUM CHLORIDE FLUSH SYRINGE 10 ML IV SCH ×2 (09:09→22:08)
[2017-08-03] MEDS: NORMODYNE PO SCH ×2 (09:09→22:07)
--- NOTE | 2017-08-03 13:57 | Progress Note ---
Assessment and Plan Assessment: SIRS / UTI Acute renal insufficiency - improving Hypertension nstemi type 2 CVA with residual left sided weakness Plan: Coumadin resumed per primary. Currently stable cardiac status. Pt may discharge home from cardiology standpoint. Follow up in our [place] office on 08/07/2017 @ 10:00AM for INR check. Follow up in our [place] office with Dr. Camejo on 08/10/2017 @ 2:00PM. The patient has been seen in conjunction with Dr. DARIO West who agrees with the assessment and plan of care. Subjective Date of service: 08/03/17 Principal diagnosis: abnl trop Interval history: pt resting comfortably in bed, no current cardiac complaints. states she feels ready to discharge today. Objective Last Vital Signs Temp 98.0 F 08/03/17 11:46 Pulse 72 08/03/17 11:46 Resp 18 08/03/17 11:46 BP 157/71 08/03/17 11:46 Pulse Ox 96 08/03/17 11:46 - Physical Examination General: No Apparent Distress HEENT: Positive: PERRL Neck: Positive: neck supple, trachea midline Cardiac: Positive: Reg Rate and Rhythm, S1/S2 Lungs: Positive: clear to auscultation Neuro: Positive: Other (right hemiparesis) Abdomen: Positive: Soft Extremities: Present: normal. Absent: edema - Labs and Meds Coagulation 08/03/17 Range/Units 06:33 PT 18.2 H (12.2-14.9) Sec. INR 1.42 H (0.87-1.13) Comprehensive Metabolic Panel 08/03/17 Range/Units 06:33 Sodium 139 (137-145) mmol/L Potassium 4.0 (3.6-5.0) mmol/L Chloride 99.7 (98-107) mmol/L Carbon Dioxide 26 (22-30) mmol/L BUN 22 H (7-17) mg/dL Creatinine 1.0 (0.7-1.2) mg/dL Glucose 155 H (65-100) mg/dL Calcium 8.7 (8.4-10.2) mg/dL - Imaging and Cardiology Echo: report reviewed (normal function no significant regurgitation) - Telemetry EKG Rhythm: Sinus Rhythm
--- NOTE | 2017-08-03 13:57 | Progress Note ---
Assessment and Plan Assessment: 1) Sepsis: fever resolved. Leukocytosis resolved. Etiology most likely UTI +/- gouty attack. -CRP=20 -Uric acid 9.5 -CXR neg 2) UTI: urine culture + E coli. Renal US simple cyst right kidney 3) Recurrent right knee edema: ? gout vs. septic knee -synovial fluid which show a cloudy fluid with 2994 white blood cells and 90 % segs. 4) Hypertension 5)Gout Plan: -continue ceftriaxone D5 of 7 -monitor fever -if she is going home ok to finish 7 days with levaquin Thank you for your consultation, will follow up with you. Verna Jacobson MD Infectious Diseases Specialist [facility] [phone] Subjective Date of service: 08/03/17 Principal diagnosis: abnl trop Interval history: Feels better no complaints. NO fever for 24h. Microbiology: Blood cultures: 07/29 ngtd 08/01 ngtd Synovial cultures: neg urine cx: 07/31 E coli pansen Current Antimicrobials: Ceftriaxone 07/30 Objective - Exam Narrative Exam: General appearance: Alert in NAD, conversant Eyes: anicteric sclerae, moist conjunctivae; no lid-lag; PERRLA HENT: Atraumatic; oropharynx clear with moist mucous membranes and no mucosal ulcerations/no oral thrush; normal hard and soft palate. Normal external ears. Neck: Trachea midline; supple, no thyromegaly or lymphadenopathy Lungs: CTA, with normal respiratory effort and no intercostal retractions CV: RRR, no murmurs Abdomen: Soft, non-tender; no masses or hepatosplenomegaly Extremities: +right knee swelling less Skin: Normal temperature, turgor and texture; no rash, ulcers or subcutaneous nodules Psych: Appropriate affect, alert and oriented to person, place and time. Neuro: alert and oriented x 3. Moving all extermities Lines: No CVL / PICC - Constitutional Vitals: Vital Signs Temp Pulse Resp BP Pulse Ox 98.0 F 72 18 157/71 96 08/03/17 11:46 08/03/17 11:46 08/03/17 11:46 08/03/17 11:46 08/03/17 11:46 Temperature -Last 24 Hours Temperature 98.0 F Temperature 98.1 F Temperature 98.8 F Temperature 98.8 F Temperature 98.1 F - Labs CBC & Chem 7: 08/01/17 12:17 08/03/17 06:33 Labs: Abnormal lab results 08/02/17 08/02/17 08/03/17 Range/Units 17:51 21:24 06:06 PT (12.2-14.9) Sec. INR (0.87-1.13) BUN (7-17) mg/dL Glucose (65-100) mg/dL POC Glucose 208 H 239 H 143 H (70-105) 08/03/17 08/03/17 Range/Units 06:33 06:33 PT 18.2 H (12.2-14.9) Sec. INR 1.42 H (0.87-1.13) BUN 22 H (7-17) mg/dL Glucose 155 H (65-100) mg/dL POC Glucose (70-105)
--- NOTE | 2017-08-03 15:46 | Progress Note ---
Assessment and Plan Sepsis likely due to urinary tract infection - Continue IV Rocephin, urine culture growing gm negative rods - blood cx negative so far. - ID following UTI, on abx, gm negative rods urine culture Hypertension,increased dose of labetelol, will cont to hold ACEI for JYOTSNA Old CVA with right hemiparesis, ordered PT eval, need JHON - cont aspirin, lipitor and coumadin resumed per cardiology recommendation Diabetes mellitus type 2, ADA diet, SSI, A1c 5.3 JYOTSNA, we'll continue IV fluids, monitor renal function, follow renal US, if no improvement will consult nephrology - could be fron vasomotor nephropathy vs medication induced - renal function remained stable, Cr level normal since 08/01 Hypokalemia, replete and monitor Elevated troponin, likely due to declining renal function and sepsis - Continue aspirin and Lipitor - preserved Ef on 2d echo - Consulted cardiology, negative stress test Right knee with swelling - possible gout - arthocenthesis done in the ER with + white count - cont tylenol as needed for pain, started on colchicine - elevated uric acid level Physical debility. consulted PT, patient wants to go for JHON DVT prophylaxis, with coumadin Brief history: 61-year-old female with a history of hypertension, CVA with leftt-sided weakness presented to the hospital with fever and dysuria. Not to have right knee swelling and UTI. Started on abx and s/p arthocethesis of the right knee in the ER. Hospitalist Physical exam: GENERAL: Elderly female lying on bed appeared to be in no discomfort. HEENT: Normocephalic. Atraumatic. No conjunctival congestion or icterus. Patient has moist mucous membranes. NECK: Supple. Trachea midline. CHEST/LUNGS: Clear to auscultated bilaterally, breathing nonlabored. No wheezes crackles or rhonchi. HEART/CARDIOVASCULAR: Regular in rate and rhythm. S1 and S2 positive. ABDOMEN: Abdomen is soft, nontender. Patient has normal bowel sounds. SKIN: There is no rash. Warm and dry. NEURO: leftt-sided weakness. Follows command. MUSCULOSKELETAL: No joint effusion or tenderness. EXTRIMITY: No edema, no cyanosis or clubbing. PSYCH: Cooperative. Subjective Date of service: 08/03/17 Principal diagnosis: abnl trop Interval history: Patient seen and examined. Medical records and medication list reviewed. No acute event overnight noted by the RN. Patient denies any chest pain or difficulty breathing. Patient is tolerating diet. Discussed plan of care at bedside with patient, afebrile. Objective - Constitutional Vitals: Vital Signs - 12hr 08/03/17 08/03/17 08/03/17 04:31 08:28 08:40 Temperature 98.8 F 98.1 F Pulse Rate 77 75 Pulse Rate [ 74 From Monitor] Respiratory 18 18 16 Rate Blood Pressure 147/69 137/66 O2 Sat by Pulse 97 96 98 Oximetry 08/03/17 08/03/17 10:00 11:46 Temperature 98.0 F Pulse Rate 75 72 Pulse Rate [ From Monitor] Respiratory 18 Rate Blood Pressure 157/71 O2 Sat by Pulse 96 Oximetry - Labs CBC & Chem 7: 08/01/17 12:17 08/03/17 06:33 Labs: Abnormal lab results 08/02/17 08/02/17 08/03/17 Range/Units 17:51 21:24 06:06 PT (12.2-14.9) Sec. INR (0.87-1.13) BUN (7-17) mg/dL Glucose (65-100) mg/dL POC Glucose 208 H 239 H 143 H (70-105) 08/03/17 08/03/17 08/03/17 Range/Units 06:33 06:33 11:56 PT 18.2 H (12.2-14.9) Sec. INR 1.42 H (0.87-1.13) BUN 22 H (7-17) mg/dL Glucose 155 H (65-100) mg/dL POC Glucose 167 H (70-105)
[2017-08-03] MEDS: COUMADIN PO SCH (16:43)
[2017-08-03] MEDS: TRICOR PO SCH (22:07)
[2017-08-04 07:07] LABS: INR 1.59 (0.87-1.13)
[2017-08-04] MEDS: HALFPRIN EC PO SCH (10:32)
[2017-08-04] MEDS: NORMODYNE PO SCH ×3 (10:32→21:13)
[2017-08-04] MEDS: cefTRIAXone 2 GM in NACL 0.9% 20 ML IV SCH (10:32)
[2017-08-04] MEDS: COLCRYS PO SCH ×2 (10:32→21:09)
[2017-08-04] MEDS: PEPCID PO SCH ×2 (10:32→21:09)
[2017-08-04] MEDS: SODIUM CHLORIDE FLUSH SYRINGE 10 ML IV SCH ×2 (10:33→21:13)
--- NOTE | 2017-08-04 11:24 | Progress Note ---
Assessment and Plan Sepsis likely due to urinary tract infection - Continue IV Rocephin, urine culture growing gm negative rods - blood cx negative so far. - ID following UTI, on abx day 6 of 7 with rocephin, gm negative rods urine culture Hypertension,increased dose of labetelol, will cont to hold ACEI for JYOTSNA Old CVA with right hemiparesis, ordered PT eval, need JHON - cont aspirin, lipitor and coumadin resumed per cardiology recommendation Diabetes mellitus type 2, ADA diet, SSI, A1c 5.3 JYOTSNA, we'll continue IV fluids, monitor renal function, follow renal US, if no improvement will consult nephrology - could be fron vasomotor nephropathy vs medication induced - renal function remained stable, Cr level normal since 08/01 Hypokalemia, repleted and monitor Elevated troponin, likely due to declining renal function and sepsis - Continue aspirin and Lipitor - preserved Ef on 2d echo - Consulted cardiology, negative stress test Right knee with swelling - possible gout - arthocenthesis done in the ER with + white count - cont tylenol as needed for pain, started on colchicine - elevated uric acid level Physical debility. consulted PT, recommended JHON DVT prophylaxis, with coumadin Brief history: 61-year-old female with a history of hypertension, CVA with leftt-sided weakness presented to the hospital with fever and dysuria. Not to have right knee swelling and UTI. Started on abx and s/p arthocethesis of the right knee in the ER. Hospitalist Physical exam: GENERAL: Elderly female lying on bed appeared to be in no discomfort. HEENT: Normocephalic. Atraumatic. No conjunctival congestion or icterus. Patient has moist mucous membranes. NECK: Supple. Trachea midline. CHEST/LUNGS: Clear to auscultated bilaterally, breathing nonlabored. No wheezes crackles or rhonchi. HEART/CARDIOVASCULAR: Regular in rate and rhythm. S1 and S2 positive. ABDOMEN: Abdomen is soft, nontender. Patient has normal bowel sounds. SKIN: There is no rash. Warm and dry. NEURO: leftt-sided weakness. Follows command. MUSCULOSKELETAL: No joint effusion or tenderness. EXTRIMITY: No edema, no cyanosis or clubbing. PSYCH: Cooperative. Subjective Date of service: 08/04/17 Principal diagnosis: abnl trop Interval history: Patient seen and examined. Medical records and medication list reviewed. No acute event overnight noted by the RN. Patient denies any chest pain or difficulty breathing. Patient is tolerating diet. Discussed plan of care at bedside with patient, afebrile. Objective - Constitutional Vitals: Vital Signs - 12hr 08/04/17 08/04/17 08/04/17 00:26 04:36 10:32 Temperature 99.4 F 98.5 F Pulse Rate 78 73 Respiratory 20 20 Rate Blood Pressure 160/67 172/78 172/78 O2 Sat by Pulse 95 93 Oximetry - Labs CBC & Chem 7: 08/01/17 12:17 08/03/17 06:33 Labs: Abnormal lab results 08/03/17 08/03/17 08/03/17 Range/Units 11:56 16:42 21:49 PT (12.2-14.9) Sec. INR (0.87-1.13) POC Glucose 167 H 228 H 210 H (70-105) 08/04/17 08/04/17 08/04/17 Range/Units 06:01 06:39 11:15 PT 19.9 H (12.2-14.9) Sec. INR 1.59 H (0.87-1.13) POC Glucose 154 H 203 H (70-105)
[2017-08-04] MEDS: HumuLIN R SUB-Q SCH ×4 (13:52→22:21)
[2017-08-04] MEDS: COUMADIN PO SCH (18:40)
[2017-08-04] MEDS: NACL 0.9% 1000 ML 1,000 ML IV SCH (19:52)
[2017-08-04] MEDS: TRICOR PO SCH (21:09)
[2017-08-05] MEDS: NACL 0.9% 1000 ML 1,000 ML IV SCH (05:58)
[2017-08-05] MEDS: APRESOLINE PO SCH ×3 (05:58→23:14)
[2017-08-05 07:14] LABS: INR 1.81 (0.87-1.13)
[2017-08-05] MEDS: HumuLIN R SUB-Q SCH ×4 (08:07→23:15)
[2017-08-05] MEDS ORDERED: cefTRIAXone 1 GM in NACL 0.9% 20 ML IV SCH (10:00)
[2017-08-05] MEDS: COLCRYS PO SCH ×2 (11:08→23:14)
[2017-08-05] MEDS: HALFPRIN EC PO SCH (11:09)
[2017-08-05] MEDS: NORVASC PO SCH (11:10)
[2017-08-05] MEDS: PEPCID PO SCH ×2 (11:10→23:15)
[2017-08-05] MEDS: NORMODYNE PO SCH ×2 (11:11→23:15)
[2017-08-05] MEDS: SODIUM CHLORIDE FLUSH SYRINGE 10 ML IV SCH ×2 (14:12→23:16)
--- NOTE | 2017-08-05 14:30 | Progress Note ---
Assessment and Plan Assessment: 1) Sepsis: fever resolved. Leukocytosis resolved. Etiology most likely UTI +/- gouty attack. -CRP=20 -Uric acid 9.5 -CXR neg 2) UTI: urine culture + E coli. Renal US simple cyst right kidney 3) Recurrent right knee edema: ? gout vs. septic knee -synovial fluid which show a cloudy fluid with 2994 white blood cells and 90 % segs. 4) Hypertension 5)Gout Plan: -stop ceftriaxone D7 of 7 -monitor off antibiotics -PT I am signing off Thank you for your consultation, will follow up with you. Verna Jacobson MD Infectious Diseases Specialist [facility] ([facility]) M [phone] O [phone] Subjective Date of service: 08/05/17 Principal diagnosis: abnl trop Interval history: Feels better no complaints. NO fever for 72h. Microbiology: Blood cultures: 07/29 ngtd 08/01 ngtd Synovial cultures: neg urine cx: 07/31 E coli pansen Current Antimicrobials: Ceftriaxone 07/30 Objective - Exam Narrative Exam: General appearance: Alert in NAD, conversant Eyes: anicteric sclerae, moist conjunctivae; no lid-lag; PERRLA HENT: Atraumatic; oropharynx clear with moist mucous membranes and no mucosal ulcerations/no oral thrush; normal hard and soft palate. Normal external ears. Neck: Trachea midline; supple, no thyromegaly or lymphadenopathy Lungs: CTA, with normal respiratory effort and no intercostal retractions CV: RRR, no murmurs Abdomen: Soft, non-tender; no masses or hepatosplenomegaly Extremities: +right knee swelling less Skin: Normal temperature, turgor and texture; no rash, ulcers or subcutaneous nodules Psych: Appropriate affect, alert and oriented to person, place and time. Neuro: alert and oriented x 3. Moving all extermities Lines: No CVL / PICC - Constitutional Vitals: Vital Signs Temp Pulse Resp BP Pulse Ox 98.6 F 77 18 133/73 99 08/05/17 11:36 08/05/17 14:13 08/05/17 11:36 08/05/17 14:13 08/05/17 11:36 Temperature -Last 24 Hours Temperature 98.6 F Temperature 98.8 F Temperature 98.3 F Temperature 99.1 F Temperature 99.0 F - Labs CBC & Chem 7: 08/01/17 12:17 08/03/17 06:33 Labs: Abnormal lab results 08/04/17 08/04/17 08/05/17 Range/Units 17:22 21:34 06:12 PT (12.2-14.9) Sec. INR (0.87-1.13) POC Glucose 155 H 128 H 116 H (70-105) 08/05/17 Range/Units 06:18 PT 22.1 H (12.2-14.9) Sec. INR 1.81 H (0.87-1.13) POC Glucose (70-105)
[2017-08-05] MEDS: COUMADIN PO SCH (16:26)
--- NOTE | 2017-08-05 18:05 | Progress Note ---
Assessment and Plan Assessment and plan: 61-year-old female with a history of hypertension, CVA with leftt-sided weakness presented to the hospital with fever and dysuria. Not to have right knee swelling and UTI. Started on abx and s/p arthocethesis of the right knee in the ER. Sepsis likely due to urinary tract infection -Finished seven-day course of IV Rocephin, urine culture growing gm negative rods, pansensitive - blood cx negative -ID consult appreciated Hypertension,increased dose of labetelol, will cont to hold ACEI for JYOTSNA Old CVA with right hemiparesis, ordered PT eval, need JHON - cont aspirin, lipitor and coumadin resumed per cardiology recommendation Diabetes mellitus type 2, ADA diet, SSI, A1c 5.3 JYOTSNA treated with IV fluids - Resolved Hypokalemia, repleted and monitor Elevated troponin, likely due to declining renal function and sepsis - Continue aspirin and Lipitor - preserved Ef on 2d echo - Consulted cardiology, negative stress test Right knee with swelling - possible gout - arthocenthesis done in the ER with + white count - cont tylenol as needed for pain, started on colchicine - elevated uric acid level Physical debility. consulted PT, recommended JHON DVT prophylaxis, with coumadin Disposition Plan: pending so acute rehabilitation placement History Interval history: patient was seen and evaluated this morning, no new complaints. Hospitalist Physical - Physical exam Narrative exam: Not in cardiopulmonary distress. The patient appeared well nourished and normally developed. Vital signs as documented. Head exam is unremarkable. No scleral icterus . Neck is without jugular venous distension, thyromegaly, or carotid bruits. Lungs are clear to auscultation. Cardiac exam reveals regular rate and Rhythm. First and second heart sounds normal. No murmurs, rubs or gallops. Abdominal exam reveals normal bowel sounds, no masses, no organomegaly and no aortic enlargement. Extremities are nonedematous and both femoral and pedal pulses are normal. CONTRACT COORDINATOR: Alert and oriented 3. Right-sided hemiparesis. - Constitutional Vitals: Temp Pulse Resp BP Pulse Ox 99.3 F 88 96 H 110/52 96 08/05/17 16:21 08/05/17 16:21 08/05/17 16:21 08/05/17 16:21 08/05/17 16:21 General appearance: Present: no acute distress, mild distress Results - Labs CBC & Chem 7: 08/01/17 12:17 08/03/17 06:33 Labs: Laboratory Last Values WBC 8.8 K/mm3 (4.5-11.0) 08/01/17 12:17 RBC 3.91 M/mm3 (3.65-5.03) 08/01/17 12:17 Hgb 9.8 gm/dl (10.1-14.3) L 08/01/17 12:17 Hct 29.7 % (30.3-42.9) L 08/01/17 12:17 MCV 76 fl (79-97) L 08/01/17 12:17 MCH 25 pg (28-32) L 08/01/17 12:17 MCHC 33 % (30-34) 08/01/17 12:17 RDW 14.8 % (13.2-15.2) 08/01/17 12:17 Plt Count 315 K/mm3 (140-440) 08/01/17 12:17 Lymph % (Auto) 11.8 % (13.4-35.0) L 07/30/17 06:06 [place] % (Auto) 8.8 % (0.0-7.3) H 07/30/17 06:06 Eos % (Auto) 0.3 % (0.0-4.3) 07/30/17 06:06 Baso % (Auto) 0.2 % (0.0-1.8) 07/30/17 06:06 Lymph # 1.3 K/mm3 (1.2-5.4) 07/30/17 06:06 [place] # 0.9 K/mm3 (0.0-0.8) H 07/30/17 06:06 Eos # 0.0 K/mm3 (0.0-0.4) 07/30/17 06:06 Baso # 0.0 K/mm3 (0.0-0.1) 07/30/17 06:06 Seg Neutrophils % 78.9 % (40.0-70.0) H 07/30/17 06:06 Seg Neutrophils # 8.4 K/mm3 (1.8-7.7) H 07/30/17 06:06 PT 22.1 Sec. (12.2-14.9) H 08/05/17 06:18 INR 1.81 (0.87-1.13) H 08/05/17 06:18 Sodium 139 mmol/L (137-145) 08/03/17 06:33 Potassium 4.0 mmol/L (3.6-5.0) 08/03/17 06:33 Chloride 99.7 mmol/L (98-107) 08/03/17 06:33 Carbon Dioxide 26 mmol/L (22-30) 08/03/17 06:33 Anion Gap 17 mmol/L 08/03/17 06:33 BUN 22 mg/dL (7-17) H 08/03/17 06:33 Creatinine 1.0 mg/dL (0.7-1.2) 08/03/17 06:33 Estimated GFR > 60 ml/min 08/03/17 06:33 BUN/Creatinine Ratio 22 % 08/03/17 06:33 Glucose 155 mg/dL (65-100) H 08/03/17 06:33 POC Glucose 116 (70-105) H 08/05/17 06:12 Hemoglobin A1c 5.3 % (4-6) 07/30/17 06:06 Lactic Acid 0.70 mmol/L (0.7-2.0) 07/29/17 23:22 Uric Acid 9.5 mg/dL (3.5-7.6) H 07/31/17 19:16 Calcium 8.7 mg/dL (8.4-10.2) 08/03/17 06:33 Total Bilirubin 0.50 mg/dL (0.1-1.2) 07/30/17 06:06 AST 19 units/L (5-40) 07/30/17 06:06 ALT 14 units/L (7-56) 07/30/17 06:06 Alkaline Phosphatase 36 units/L (35-129) 07/30/17 06:06 Troponin T 0.062 ng/mL (0.00-0.029) H 07/30/17 14:40 C-Reactive Protein 20.00 mg/dL (0.00-1.30) H 07/31/17 19:16 Total Protein 6.7 g/dL (6.3-8.2) 07/30/17 06:06 Albumin 3.4 g/dL (3.9-5) L 07/30/17 06:06 Albumin/Globulin Ratio 1.0 % 07/30/17 06:06 Triglycerides 196 mg/dL (2-149) H 07/29/17 18:53 Cholesterol 226 mg/dL (50-199) H 07/29/17 18:53 LDL Cholesterol Direct 149 mg/dL (50-130) H 07/29/17 18:53 HDL Cholesterol 34 mg/dL (40-59) L 07/29/17 18:53 Cholesterol/HDL Ratio 6.64 % 07/29/17 18:53 Urine Color Yellow (Yellow) 07/29/17 18:47 Urine Turbidity Clear (Clear) 07/29/17 18:47 Urine pH 6.0 (5.0-7.0) 07/29/17 18:47 Ur Specific [place] 1.014 (1.003-1.030) 07/29/17 18:47 Urine Protein <15 mg/dl mg/dL (Negative) 07/29/17 18:47 Urine Glucose (UA) 50 mg/dL (Negative) 07/29/17 18:47 Urine Ketones Neg mg/dL (Negative) 07/29/17 18:47 Urine Blood Sm (Negative) 07/29/17 18:47 Urine Nitrite Neg (Negative) 07/29/17 18:47 Urine Bilirubin Neg (Negative) 07/29/17 18:47 Urine Urobilinogen < 2.0 mg/dL (<2.0) 07/29/17 18:47 Ur Leukocyte Esterase Lg (Negative) 07/29/17 18:47 Urine WBC (Auto) 136.0 /HPF (0.0-6.0) H 07/29/17 18:47 Urine RBC (Auto) 3.0 /HPF (0.0-6.0) 07/29/17 18:47 U Epithel Cells (Auto) 11.0 /HPF (0-13.0) 07/29/17 18:47 Urine Bacteria (Auto) 1+ /HPF (Negative) 07/29/17 18:47 Urine WBC Clumps 2+ /HPF 07/29/17 18:47 Ur Transition Epith Cell 2 /HPF 07/29/17 18:47 Urine Mucus Few /HPF 07/29/17 18:47 Fluid Type Synovial 07/29/17 20:16 Fluid Color Yellow 07/29/17 20:16 Fluid Appearance Cloudy 07/29/17 20:16 Fluid WBC 2994 /mm3 07/29/17 20:16 Fluid RBC 156 /mm3 07/29/17 20:16 Fluid Seg Neutrophils 89.0 % 07/29/17 20:16 Fluid Lymphocytes 3.0 % 07/29/17 20:16 Fluid Reactive Lymphs 0 % 07/29/17 20:16 Fluid Monocytes 8.0 % 07/29/17 20:16 Fluid Eosinophils 0 % 07/29/17 20:16 Fluid Basophils 0 % 07/29/17 20:16 Fluid Glucose 162 mg/dL (40-70) H 07/29/17 20:16
[2017-08-05] MEDS: TRICOR PO SCH (23:15)
[2017-08-06] MEDS: APRESOLINE PO SCH ×3 (06:58→21:50)
[2017-08-06 07:07] LABS: INR 2.1 (0.87-1.13)
[2017-08-06 07:19] LABS: BUN/Creatinine Ratio 21; Blood Urea Nitrogen 17 mg/dL (7-17); Calcium 8.6 mg/dL (8.4-10.2); Hemolysis Index 1
[2017-08-06] MEDS: HumuLIN R SUB-Q SCH ×4 (08:01→22:29)
[2017-08-06] MEDS: PEPCID PO SCH ×2 (09:25→21:50)
[2017-08-06] MEDS: COLCRYS PO SCH ×2 (09:26→21:50)
[2017-08-06] MEDS: HALFPRIN EC PO SCH (09:27)
[2017-08-06] MEDS: NORMODYNE PO SCH ×2 (09:27→21:50)
[2017-08-06] MEDS: SODIUM CHLORIDE FLUSH SYRINGE 10 ML IV SCH ×2 (09:28→21:50)
[2017-08-06] MEDS: NORVASC PO SCH (09:28)
--- NOTE | 2017-08-06 12:55 | Discharge Summary ---
Providers - Providers Date of Admission: 07/29/17 22:00 Attending physician: ANGEL SANTIAGO MD 07/30/17 Consult to Case Management [CONS] Routine Services Needed at Discharge: Home Health Services Notified:: case supervisor 07/30/17 14:32 Physical Therapy Evaluation and Treat [CONS] Routine Comment: Reason For Exam: generalized weakness 07/31/17 12:07 Consult to Physician [CONS] Routine Comment: Consulting Provider: RENATO LLANOS Physician Instructions: Reason For Exam: fever Primary care physician: TUBE COVERER Hospitalization Reason for admission: Sepsis Condition: Stable Disposition: DC/[place]-03 [facility] Time spent for discharge: 31 minutes - Discharge Diagnoses (1) Right knee pain Status: Acute (2) Sepsis Status: Acute (3) UTI (urinary tract infection) Status: Acute (4) Elevated troponin Status: Acute Core Measure Documentation - Palliative Care Palliative Care/ Comfort Measures: Not Applicable - Core Measures Any of the following diagnoses?: none, history only (CVA) Exam - Physical Exam Narrative exam: Not in cardiopulmonary distress. The patient appeared well nourished and normally developed. Vital signs as documented. Head exam is unremarkable. No scleral icterus . Neck is without jugular venous distension, thyromegaly, or carotid bruits. Lungs are clear to auscultation. Cardiac exam reveals regular rate and Rhythm. First and second heart sounds normal. No murmurs, rubs or gallops. Abdominal exam reveals normal bowel sounds, no masses, no organomegaly and no aortic enlargement. Extremities are nonedematous and both femoral and pedal pulses are normal. MARBLE COPER: Alert and oriented 3. Right-sided hemiparesis. - Constitutional Vitals: Temp Pulse Resp BP Pulse Ox 98.8 F 101 H 16 109/57 96 08/06/17 11:21 08/06/17 11:21 08/06/17 11:21 08/06/17 11:21 08/06/17 11:21 Plan Activity: advance as tolerated Weight Bearing Status: Partial Weight Bearing Diet: low salt Follow up with: JE PETERSON MD [Primary Care Provider] - 3-5 Days REDDY KAY MD [Staff Physician] - 7 Days (08/10/17 at 2:00 p.m. in [facility] ) Forms: Warfarin Discharge Instruction
[2017-08-06] MEDS: COUMADIN PO SCH (16:55)
[2017-08-06] MEDS: TRICOR PO SCH (21:50)
[2017-08-07] MEDS: APRESOLINE PO SCH ×3 (05:51→21:55)
[2017-08-07] MEDS: HumuLIN R SUB-Q SCH ×4 (07:30→22:10)
[2017-08-07 07:49] LABS: INR 2.55 (0.87-1.13)
[2017-08-07] MEDS: COLCRYS PO SCH ×2 (09:02→21:55)
[2017-08-07] MEDS: PEPCID PO SCH ×2 (09:02→21:56)
[2017-08-07] MEDS: NORVASC PO SCH (09:02)
[2017-08-07] MEDS: HALFPRIN EC PO SCH (09:02)
[2017-08-07] MEDS: NORMODYNE PO SCH ×2 (09:03→21:56)
--- NOTE | 2017-08-07 09:10 | Progress Note ---
Assessment and Plan Assessment and plan: 61-year-old female with a history of hypertension, CVA with leftt-sided weakness presented to the hospital with fever and dysuria. Not to have right knee swelling and UTI. Started on abx and s/p arthocethesis of the right knee in the ER. Sepsis likely due to urinary tract infection -Finished seven-day course of IV Rocephin, urine culture growing gm negative rods, pansensitive - blood cx negative -ID consult appreciated Hypertension,increased dose of labetelol, will cont to hold ACEI for JYOTSNA Old CVA with right hemiparesis, ordered PT eval, need JHON - cont aspirin, lipitor and coumadin resumed per cardiology recommendation Diabetes mellitus type 2, ADA diet, SSI, A1c 5.3 JYOTSNA treated with IV fluids - Resolved Hypokalemia, repleted and monitor Elevated troponin, likely due to declining renal function and sepsis - Continue aspirin and Lipitor - preserved Ef on 2d echo - Consulted cardiology, negative stress test Right knee with swelling - possible gout - arthocenthesis done in the ER with + white count - cont tylenol as needed for pain, started on colchicine - elevated uric acid level Physical debility. consulted PT, recommended JHON DVT prophylaxis, with coumadin - Patient Problems (1) Right knee pain Current Visit: Yes Status: Acute (2) Sepsis Current Visit: Yes Status: Acute (3) UTI (urinary tract infection) Current Visit: Yes Status: Acute (4) Elevated troponin Current Visit: Yes Status: Acute History Interval history: patient was seen and evaluated this morning, no new complaints. Hospitalist Physical - Physical exam Narrative exam: Not in cardiopulmonary distress. The patient appeared well nourished and normally developed. Vital signs as documented. Head exam is unremarkable. No scleral icterus . Neck is without jugular venous distension, thyromegaly, or carotid bruits. Lungs are clear to auscultation. Cardiac exam reveals regular rate and Rhythm. First and second heart sounds normal. No murmurs, rubs or gallops. Abdominal exam reveals normal bowel sounds, no masses, no organomegaly and no aortic enlargement. Extremities are nonedematous and both femoral and pedal pulses are normal. AUTOMATIC DEVELOPER: Alert and oriented 3. Right-sided hemiparesis. - Constitutional Vitals: Temp Pulse Resp BP Pulse Ox 98.2 F 82 24 125/65 97 08/07/17 08:04 08/07/17 09:03 08/07/17 08:04 08/07/17 09:03 08/07/17 08:04 General appearance: Present: no acute distress, mild distress Results - Labs CBC & Chem 7: 08/01/17 12:17 08/06/17 06:29 Labs: Laboratory Last Values WBC 8.8 K/mm3 (4.5-11.0) 08/01/17 12:17 RBC 3.91 M/mm3 (3.65-5.03) 08/01/17 12:17 Hgb 9.8 gm/dl (10.1-14.3) L 08/01/17 12:17 Hct 29.7 % (30.3-42.9) L 08/01/17 12:17 MCV 76 fl (79-97) L 08/01/17 12:17 MCH 25 pg (28-32) L 08/01/17 12:17 MCHC 33 % (30-34) 08/01/17 12:17 RDW 14.8 % (13.2-15.2) 08/01/17 12:17 Plt Count 315 K/mm3 (140-440) 08/01/17 12:17 Lymph % (Auto) 11.8 % (13.4-35.0) L 07/30/17 06:06 [place] % (Auto) 8.8 % (0.0-7.3) H 07/30/17 06:06 Eos % (Auto) 0.3 % (0.0-4.3) 07/30/17 06:06 Baso % (Auto) 0.2 % (0.0-1.8) 07/30/17 06:06 Lymph # 1.3 K/mm3 (1.2-5.4) 07/30/17 06:06 [place] # 0.9 K/mm3 (0.0-0.8) H 07/30/17 06:06 Eos # 0.0 K/mm3 (0.0-0.4) 07/30/17 06:06 Baso # 0.0 K/mm3 (0.0-0.1) 07/30/17 06:06 Seg Neutrophils % 78.9 % (40.0-70.0) H 07/30/17 06:06 Seg Neutrophils # 8.4 K/mm3 (1.8-7.7) H 07/30/17 06:06 PT 29.1 Sec. (12.2-14.9) H 08/07/17 06:58 INR 2.55 (0.87-1.13) H 08/07/17 06:58 Sodium 140 mmol/L (137-145) 08/06/17 06:29 Potassium 3.6 mmol/L (3.6-5.0) 08/06/17 06:29 Chloride 102.9 mmol/L (98-107) 08/06/17 06:29 Carbon Dioxide 26 mmol/L (22-30) 08/06/17 06:29 Anion Gap 15 mmol/L 08/06/17 06:29 BUN 17 mg/dL (7-17) 08/06/17 06:29 Creatinine 0.8 mg/dL (0.7-1.2) 08/06/17 06:29 Estimated GFR > 60 ml/min 08/06/17 06:29 BUN/Creatinine Ratio 21 % 08/06/17 06:29 Glucose 126 mg/dL (65-100) H 08/06/17 06:29 POC Glucose 135 (70-105) H 08/07/17 06:19 Hemoglobin A1c 5.3 % (4-6) 07/30/17 06:06 Lactic Acid 0.70 mmol/L (0.7-2.0) 07/29/17 23:22 Uric Acid 9.5 mg/dL (3.5-7.6) H 07/31/17 19:16 Calcium 8.6 mg/dL (8.4-10.2) 08/06/17 06:29 Total Bilirubin 0.50 mg/dL (0.1-1.2) 07/30/17 06:06 AST 19 units/L (5-40) 07/30/17 06:06 ALT 14 units/L (7-56) 07/30/17 06:06 Alkaline Phosphatase 36 units/L (35-129) 07/30/17 06:06 Troponin T 0.062 ng/mL (0.00-0.029) H 07/30/17 14:40 C-Reactive Protein 20.00 mg/dL (0.00-1.30) H 07/31/17 19:16 Total Protein 6.7 g/dL (6.3-8.2) 07/30/17 06:06 Albumin 3.4 g/dL (3.9-5) L 07/30/17 06:06 Albumin/Globulin Ratio 1.0 % 07/30/17 06:06 Triglycerides 196 mg/dL (2-149) H 07/29/17 18:53 Cholesterol 226 mg/dL (50-199) H 07/29/17 18:53 LDL Cholesterol Direct 149 mg/dL (50-130) H 07/29/17 18:53 HDL Cholesterol 34 mg/dL (40-59) L 07/29/17 18:53 Cholesterol/HDL Ratio 6.64 % 07/29/17 18:53 Urine Color Yellow (Yellow) 07/29/17 18:47 Urine Turbidity Clear (Clear) 07/29/17 18:47 Urine pH 6.0 (5.0-7.0) 07/29/17 18:47 Ur Specific [place] 1.014 (1.003-1.030) 07/29/17 18:47 Urine Protein <15 mg/dl mg/dL (Negative) 07/29/17 18:47 Urine Glucose (UA) 50 mg/dL (Negative) 07/29/17 18:47 Urine Ketones Neg mg/dL (Negative) 07/29/17 18:47 Urine Blood Sm (Negative) 07/29/17 18:47 Urine Nitrite Neg (Negative) 07/29/17 18:47 Urine Bilirubin Neg (Negative) 07/29/17 18:47 Urine Urobilinogen < 2.0 mg/dL (<2.0) 07/29/17 18:47 Ur Leukocyte Esterase Lg (Negative) 07/29/17 18:47 Urine WBC (Auto) 136.0 /HPF (0.0-6.0) H 07/29/17 18:47 Urine RBC (Auto) 3.0 /HPF (0.0-6.0) 07/29/17 18:47 U Epithel Cells (Auto) 11.0 /HPF (0-13.0) 07/29/17 18:47 Urine Bacteria (Auto) 1+ /HPF (Negative) 07/29/17 18:47 Urine WBC Clumps 2+ /HPF 07/29/17 18:47 Ur Transition Epith Cell 2 /HPF 07/29/17 18:47 Urine Mucus Few /HPF 07/29/17 18:47 Fluid Type Synovial 07/29/17 20:16 Fluid Color Yellow 07/29/17 20:16 Fluid Appearance Cloudy 07/29/17 20:16 Fluid WBC 2994 /mm3 07/29/17 20:16 Fluid RBC 156 /mm3 07/29/17 20:16 Fluid Seg Neutrophils 89.0 % 07/29/17 20:16 Fluid Lymphocytes 3.0 % 07/29/17 20:16 Fluid Reactive Lymphs 0 % 07/29/17 20:16 Fluid Monocytes 8.0 % 07/29/17 20:16 Fluid Eosinophils 0 % 07/29/17 20:16 Fluid Basophils 0 % 07/29/17 20:16 Fluid Glucose 162 mg/dL (40-70) H 07/29/17 20:16
[2017-08-07] MEDS: SODIUM CHLORIDE FLUSH SYRINGE 10 ML IV SCH ×2 (09:30→22:11)
[2017-08-07] MEDS: COUMADIN PO SCH (17:53)
[2017-08-07] MEDS: TRICOR PO SCH (21:58)
[2017-08-08] MEDS: APRESOLINE PO SCH ×3 (06:12→21:19)
[2017-08-08 07:02] LABS: INR 2.56 (0.87-1.13)
--- NOTE | 2017-08-08 08:29 | Progress Note ---
Assessment and Plan Assessment and plan: 61-year-old female with a history of hypertension, CVA with leftt-sided weakness presented to the hospital with fever and dysuria. Not to have right knee swelling and UTI. Started on abx and s/p arthocethesis of the right knee in the ER. Sepsis likely due to urinary tract infection -Finished seven-day course of IV Rocephin, urine culture growing gm negative rods, pansensitive - blood cx negative -ID consult appreciated Hypertension,increased dose of labetelol, will cont to hold ACEI for JYOTSNA Old CVA with right hemiparesis, ordered PT eval, need JHON - cont aspirin, lipitor and coumadin resumed per cardiology recommendation Diabetes mellitus type 2, ADA diet, SSI, A1c 5.3 JYOTSNA treated with IV fluids - Resolved Hypokalemia, repleted and monitor Elevated troponin, likely due to declining renal function and sepsis - Continue aspirin and Lipitor - preserved Ef on 2d echo - Consulted cardiology, negative stress test Right knee with swelling - possible gout - arthocenthesis done in the ER with + white count - cont tylenol as needed for pain, started on colchicine - elevated uric acid level Physical debility. consulted PT, recommended JHON DVT prophylaxis, with coumadin Disposition: discharged yesterday to SNF but she appealed discharge. - Patient Problems (1) Right knee pain Current Visit: Yes Status: Acute (2) Sepsis Current Visit: Yes Status: Acute (3) UTI (urinary tract infection) Current Visit: Yes Status: Acute (4) Elevated troponin Current Visit: Yes Status: Acute History Interval history: patient was seen and evaluated this morning, no new complaints. Hospitalist Physical - Physical exam Narrative exam: Not in cardiopulmonary distress. The patient appeared well nourished and normally developed. Vital signs as documented. Head exam is unremarkable. No scleral icterus . Neck is without jugular venous distension, thyromegaly, or carotid bruits. Lungs are clear to auscultation. Cardiac exam reveals regular rate and Rhythm. First and second heart sounds normal. No murmurs, rubs or gallops. Abdominal exam reveals normal bowel sounds, no masses, no organomegaly and no aortic enlargement. Extremities are nonedematous and both femoral and pedal pulses are normal. PHYTOPATHOLOGIST: Alert and oriented 3. Right-sided hemiparesis. - Constitutional Vitals: Temp Pulse Resp BP Pulse Ox 98.9 F 77 19 124/58 98 08/08/17 07:33 08/08/17 07:33 08/08/17 07:33 08/08/17 07:33 08/08/17 07:33 General appearance: Present: no acute distress, mild distress Results - Labs CBC & Chem 7: 08/01/17 12:17 08/06/17 06:29 Labs: Laboratory Last Values WBC 8.8 K/mm3 (4.5-11.0) 08/01/17 12:17 RBC 3.91 M/mm3 (3.65-5.03) 08/01/17 12:17 Hgb 9.8 gm/dl (10.1-14.3) L 08/01/17 12:17 Hct 29.7 % (30.3-42.9) L 08/01/17 12:17 MCV 76 fl (79-97) L 08/01/17 12:17 MCH 25 pg (28-32) L 08/01/17 12:17 MCHC 33 % (30-34) 08/01/17 12:17 RDW 14.8 % (13.2-15.2) 08/01/17 12:17 Plt Count 315 K/mm3 (140-440) 08/01/17 12:17 Lymph % (Auto) 11.8 % (13.4-35.0) L 07/30/17 06:06 [place] % (Auto) 8.8 % (0.0-7.3) H 07/30/17 06:06 Eos % (Auto) 0.3 % (0.0-4.3) 07/30/17 06:06 Baso % (Auto) 0.2 % (0.0-1.8) 07/30/17 06:06 Lymph # 1.3 K/mm3 (1.2-5.4) 07/30/17 06:06 [place] # 0.9 K/mm3 (0.0-0.8) H 07/30/17 06:06 Eos # 0.0 K/mm3 (0.0-0.4) 07/30/17 06:06 Baso # 0.0 K/mm3 (0.0-0.1) 07/30/17 06:06 Seg Neutrophils % 78.9 % (40.0-70.0) H 07/30/17 06:06 Seg Neutrophils # 8.4 K/mm3 (1.8-7.7) H 07/30/17 06:06 PT 29.2 Sec. (12.2-14.9) H 08/08/17 05:43 INR 2.56 (0.87-1.13) H 08/08/17 05:43 Sodium 140 mmol/L (137-145) 08/06/17 06:29 Potassium 3.6 mmol/L (3.6-5.0) 08/06/17 06:29 Chloride 102.9 mmol/L (98-107) 08/06/17 06:29 Carbon Dioxide 26 mmol/L (22-30) 08/06/17 06:29 Anion Gap 15 mmol/L 08/06/17 06:29 BUN 17 mg/dL (7-17) 08/06/17 06:29 Creatinine 0.8 mg/dL (0.7-1.2) 08/06/17 06:29 Estimated GFR > 60 ml/min 08/06/17 06:29 BUN/Creatinine Ratio 21 % 08/06/17 06:29 Glucose 126 mg/dL (65-100) H 08/06/17 06:29 POC Glucose 132 (70-105) H 08/08/17 06:07 Hemoglobin A1c 5.3 % (4-6) 07/30/17 06:06 Lactic Acid 0.70 mmol/L (0.7-2.0) 07/29/17 23:22 Uric Acid 9.5 mg/dL (3.5-7.6) H 07/31/17 19:16 Calcium 8.6 mg/dL (8.4-10.2) 08/06/17 06:29 Total Bilirubin 0.50 mg/dL (0.1-1.2) 07/30/17 06:06 AST 19 units/L (5-40) 07/30/17 06:06 ALT 14 units/L (7-56) 07/30/17 06:06 Alkaline Phosphatase 36 units/L (35-129) 07/30/17 06:06 Troponin T 0.062 ng/mL (0.00-0.029) H 07/30/17 14:40 C-Reactive Protein 20.00 mg/dL (0.00-1.30) H 07/31/17 19:16 Total Protein 6.7 g/dL (6.3-8.2) 07/30/17 06:06 Albumin 3.4 g/dL (3.9-5) L 07/30/17 06:06 Albumin/Globulin Ratio 1.0 % 07/30/17 06:06 Triglycerides 196 mg/dL (2-149) H 07/29/17 18:53 Cholesterol 226 mg/dL (50-199) H 07/29/17 18:53 LDL Cholesterol Direct 149 mg/dL (50-130) H 07/29/17 18:53 HDL Cholesterol 34 mg/dL (40-59) L 07/29/17 18:53 Cholesterol/HDL Ratio 6.64 % 07/29/17 18:53 Urine Color Yellow (Yellow) 07/29/17 18:47 Urine Turbidity Clear (Clear) 07/29/17 18:47 Urine pH 6.0 (5.0-7.0) 07/29/17 18:47 Ur Specific [place] 1.014 (1.003-1.030) 07/29/17 18:47 Urine Protein <15 mg/dl mg/dL (Negative) 07/29/17 18:47 Urine Glucose (UA) 50 mg/dL (Negative) 07/29/17 18:47 Urine Ketones Neg mg/dL (Negative) 07/29/17 18:47 Urine Blood Sm (Negative) 07/29/17 18:47 Urine Nitrite Neg (Negative) 07/29/17 18:47 Urine Bilirubin Neg (Negative) 07/29/17 18:47 Urine Urobilinogen < 2.0 mg/dL (<2.0) 07/29/17 18:47 Ur Leukocyte Esterase Lg (Negative) 07/29/17 18:47 Urine WBC (Auto) 136.0 /HPF (0.0-6.0) H 07/29/17 18:47 Urine RBC (Auto) 3.0 /HPF (0.0-6.0) 07/29/17 18:47 U Epithel Cells (Auto) 11.0 /HPF (0-13.0) 07/29/17 18:47 Urine Bacteria (Auto) 1+ /HPF (Negative) 07/29/17 18:47 Urine WBC Clumps 2+ /HPF 07/29/17 18:47 Ur Transition Epith Cell 2 /HPF 07/29/17 18:47 Urine Mucus Few /HPF 07/29/17 18:47 Fluid Type Synovial 07/29/17 20:16 Fluid Color Yellow 07/29/17 20:16 Fluid Appearance Cloudy 07/29/17 20:16 Fluid WBC 2994 /mm3 07/29/17 20:16 Fluid RBC 156 /mm3 07/29/17 20:16 Fluid Seg Neutrophils 89.0 % 07/29/17 20:16 Fluid Lymphocytes 3.0 % 07/29/17 20:16 Fluid Reactive Lymphs 0 % 07/29/17 20:16 Fluid Monocytes 8.0 % 07/29/17 20:16 Fluid Eosinophils 0 % 07/29/17 20:16 Fluid Basophils 0 % 07/29/17 20:16 Fluid Glucose 162 mg/dL (40-70) H 07/29/17 20:16
[2017-08-08] MEDS: HumuLIN R SUB-Q SCH ×4 (09:48→22:57)
[2017-08-08] MEDS: HALFPRIN EC PO SCH (09:54)
[2017-08-08] MEDS: PEPCID PO SCH ×2 (09:54→21:21)
[2017-08-08] MEDS: COLCRYS PO SCH ×2 (09:54→22:56)
[2017-08-08] MEDS: NORVASC PO SCH (09:54)
[2017-08-08] MEDS: NORMODYNE PO SCH ×2 (09:54→21:22)
[2017-08-08] MEDS: SODIUM CHLORIDE FLUSH SYRINGE 10 ML IV SCH ×2 (13:30→21:26)
--- NOTE | 2017-08-08 13:49 | Progress Note ---
Assessment and Plan Assessment and plan: 61-year-old female with a history of hypertension, CVA with leftt-sided weakness presented to the hospital with fever and dysuria. Not to have right knee swelling and UTI. Started on abx and s/p arthocethesis of the right knee in the ER. Sepsis likely due to urinary tract infection -Finished seven-day course of IV Rocephin, urine culture growing gm negative rods, pansensitive - blood cx negative -ID consult appreciated Hypertension,increased dose of labetelol, will cont to hold ACEI for JYOTSNA Old CVA with right hemiparesis, ordered PT eval, need JHON - cont aspirin, lipitor and coumadin resumed per cardiology recommendation Diabetes mellitus type 2, ADA diet, SSI, A1c 5.3 JYOTSNA treated with IV fluids - Resolved Hypokalemia, repleted and monitor Elevated troponin, likely due to declining renal function and sepsis - Continue aspirin and Lipitor - preserved Ef on 2d echo - Consulted cardiology, negative stress test Right knee with swelling - possible gout - arthocenthesis done in the ER with + white count - cont tylenol as needed for pain, started on colchicine - elevated uric acid level Physical debility. consulted PT, recommended JHON DVT prophylaxis, with coumadin Disposition: Patient discharged to SNF but appealed discharge. - Patient Problems (1) Right knee pain Current Visit: Yes Status: Acute (2) Sepsis Current Visit: Yes Status: Acute (3) UTI (urinary tract infection) Current Visit: Yes Status: Acute (4) Elevated troponin Current Visit: Yes Status: Acute History Interval history: patient was seen and evaluated this morning, no new complaints. patient is doing well. Hospitalist Physical - Physical exam Narrative exam: Not in cardiopulmonary distress. The patient appeared well nourished and normally developed. Vital signs as documented. Head exam is unremarkable. No scleral icterus . Neck is without jugular venous distension, thyromegaly, or carotid bruits. Lungs are clear to auscultation. Cardiac exam reveals regular rate and Rhythm. First and second heart sounds normal. No murmurs, rubs or gallops. Abdominal exam reveals normal bowel sounds, no masses, no organomegaly and no aortic enlargement. Extremities are nonedematous and both femoral and pedal pulses are normal. 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 Right-sided hemiparesis. - Constitutional Vitals: Temp Pulse Resp BP Pulse Ox 98.9 F 77 19 106/53 98 08/08/17 07:33 08/08/17 07:33 08/08/17 07:33 08/08/17 13:20 08/08/17 07:33 General appearance: Present: no acute distress, mild distress Results - Labs CBC & Chem 7: 08/01/17 12:17 08/06/17 06:29 Labs: Laboratory Last Values WBC 8.8 K/mm3 (4.5-11.0) 08/01/17 12:17 RBC 3.91 M/mm3 (3.65-5.03) 08/01/17 12:17 Hgb 9.8 gm/dl (10.1-14.3) L 08/01/17 12:17 Hct 29.7 % (30.3-42.9) L 08/01/17 12:17 MCV 76 fl (79-97) L 08/01/17 12:17 MCH 25 pg (28-32) L 08/01/17 12:17 MCHC 33 % (30-34) 08/01/17 12:17 RDW 14.8 % (13.2-15.2) 08/01/17 12:17 Plt Count 315 K/mm3 (140-440) 08/01/17 12:17 Lymph % (Auto) 11.8 % (13.4-35.0) L 07/30/17 06:06 [place] % (Auto) 8.8 % (0.0-7.3) H 07/30/17 06:06 Eos % (Auto) 0.3 % (0.0-4.3) 07/30/17 06:06 Baso % (Auto) 0.2 % (0.0-1.8) 07/30/17 06:06 Lymph # 1.3 K/mm3 (1.2-5.4) 07/30/17 06:06 [place] # 0.9 K/mm3 (0.0-0.8) H 07/30/17 06:06 Eos # 0.0 K/mm3 (0.0-0.4) 07/30/17 06:06 Baso # 0.0 K/mm3 (0.0-0.1) 07/30/17 06:06 Seg Neutrophils % 78.9 % (40.0-70.0) H 07/30/17 06:06 Seg Neutrophils # 8.4 K/mm3 (1.8-7.7) H 07/30/17 06:06 PT 29.2 Sec. (12.2-14.9) H 08/08/17 05:43 INR 2.56 (0.87-1.13) H 08/08/17 05:43 Sodium 140 mmol/L (137-145) 08/06/17 06:29 Potassium 3.6 mmol/L (3.6-5.0) 08/06/17 06:29 Chloride 102.9 mmol/L (98-107) 08/06/17 06:29 Carbon Dioxide 26 mmol/L (22-30) 08/06/17 06:29 Anion Gap 15 mmol/L 08/06/17 06:29 BUN 17 mg/dL (7-17) 08/06/17 06:29 Creatinine 0.8 mg/dL (0.7-1.2) 08/06/17 06:29 Estimated GFR > 60 ml/min 08/06/17 06:29 BUN/Creatinine Ratio 21 % 08/06/17 06:29 Glucose 126 mg/dL (65-100) H 08/06/17 06:29 POC Glucose 177 (70-105) H 08/08/17 11:18 Hemoglobin A1c 5.3 % (4-6) 07/30/17 06:06 Lactic Acid 0.70 mmol/L (0.7-2.0) 07/29/17 23:22 Uric Acid 9.5 mg/dL (3.5-7.6) H 07/31/17 19:16 Calcium 8.6 mg/dL (8.4-10.2) 08/06/17 06:29 Total Bilirubin 0.50 mg/dL (0.1-1.2) 07/30/17 06:06 AST 19 units/L (5-40) 07/30/17 06:06 ALT 14 units/L (7-56) 07/30/17 06:06 Alkaline Phosphatase 36 units/L (35-129) 07/30/17 06:06 Troponin T 0.062 ng/mL (0.00-0.029) H 07/30/17 14:40 C-Reactive Protein 20.00 mg/dL (0.00-1.30) H 07/31/17 19:16 Total Protein 6.7 g/dL (6.3-8.2) 07/30/17 06:06 Albumin 3.4 g/dL (3.9-5) L 07/30/17 06:06 Albumin/Globulin Ratio 1.0 % 07/30/17 06:06 Triglycerides 196 mg/dL (2-149) H 07/29/17 18:53 Cholesterol 226 mg/dL (50-199) H 07/29/17 18:53 LDL Cholesterol Direct 149 mg/dL (50-130) H 07/29/17 18:53 HDL Cholesterol 34 mg/dL (40-59) L 07/29/17 18:53 Cholesterol/HDL Ratio 6.64 % 07/29/17 18:53 Urine Color Yellow (Yellow) 07/29/17 18:47 Urine Turbidity Clear (Clear) 07/29/17 18:47 Urine pH 6.0 (5.0-7.0) 07/29/17 18:47 Ur Specific [place] 1.014 (1.003-1.030) 07/29/17 18:47 Urine Protein <15 mg/dl mg/dL (Negative) 07/29/17 18:47 Urine Glucose (UA) 50 mg/dL (Negative) 07/29/17 18:47 Urine Ketones Neg mg/dL (Negative) 07/29/17 18:47 Urine Blood Sm (Negative) 07/29/17 18:47 Urine Nitrite Neg (Negative) 07/29/17 18:47 Urine Bilirubin Neg (Negative) 07/29/17 18:47 Urine Urobilinogen < 2.0 mg/dL (<2.0) 07/29/17 18:47 Ur Leukocyte Esterase Lg (Negative) 07/29/17 18:47 Urine WBC (Auto) 136.0 /HPF (0.0-6.0) H 07/29/17 18:47 Urine RBC (Auto) 3.0 /HPF (0.0-6.0) 07/29/17 18:47 U Epithel Cells (Auto) 11.0 /HPF (0-13.0) 07/29/17 18:47 Urine Bacteria (Auto) 1+ /HPF (Negative) 07/29/17 18:47 Urine WBC Clumps 2+ /HPF 07/29/17 18:47 Ur Transition Epith Cell 2 /HPF 07/29/17 18:47 Urine Mucus Few /HPF 07/29/17 18:47 Fluid Type Synovial 07/29/17 20:16 Fluid Color Yellow 07/29/17 20:16 Fluid Appearance Cloudy 07/29/17 20:16 Fluid WBC 2994 /mm3 07/29/17 20:16 Fluid RBC 156 /mm3 07/29/17 20:16 Fluid Seg Neutrophils 89.0 % 07/29/17 20:16 Fluid Lymphocytes 3.0 % 07/29/17 20:16 Fluid Reactive Lymphs 0 % 07/29/17 20:16 Fluid Monocytes 8.0 % 07/29/17 20:16 Fluid Eosinophils 0 % 07/29/17 20:16 Fluid Basophils 0 % 07/29/17 20:16 Fluid Glucose 162 mg/dL (40-70) H 07/29/17 20:16
[2017-08-08] MEDS: COUMADIN PO SCH (17:47)
[2017-08-08] MEDS: TRICOR PO SCH (21:21)
[2017-08-08] MEDS: AMBIEN PO PRN (21:25)
[2017-08-09 06:19] LABS: INR 2.91 (0.87-1.13)
[2017-08-09] MEDS: APRESOLINE PO SCH ×3 (06:46→21:56)
[2017-08-09] MEDS: HumuLIN R SUB-Q SCH ×4 (07:51→22:45)
[2017-08-09] MEDS: COLCRYS PO SCH ×2 (09:24→21:56)
[2017-08-09] MEDS: NORMODYNE PO SCH ×2 (09:25→21:55)
[2017-08-09] MEDS: SODIUM CHLORIDE FLUSH SYRINGE 10 ML IV SCH ×2 (09:25→22:00)
[2017-08-09] MEDS: NORVASC PO SCH (09:25)
[2017-08-09] MEDS: PEPCID PO SCH ×2 (09:25→21:56)
[2017-08-09] MEDS: HALFPRIN EC PO SCH (09:25)
--- NOTE | 2017-08-09 12:30 | Progress Note ---
Assessment and Plan Assessment and plan: 61-year-old female with a history of hypertension, CVA with leftt-sided weakness presented to the hospital with fever and dysuria. Not to have right knee swelling and UTI. Started on abx and s/p arthocethesis of the right knee in the ER. Sepsis likely due to urinary tract infection -Finished seven-day course of IV Rocephin, urine culture growing gm negative rods, pansensitive - blood cx negative -ID consult appreciated Hypertension,increased dose of labetelol, will cont to hold ACEI for JYOTSNA Old CVA with right hemiparesis, ordered PT eval, need JHON - cont aspirin, lipitor and coumadin resumed per cardiology recommendation Diabetes mellitus type 2, ADA diet, SSI, A1c 5.3 JYOTSNA treated with IV fluids - Resolved Hypokalemia, repleted and monitor Elevated troponin, likely due to declining renal function and sepsis - Continue aspirin and Lipitor - preserved Ef on 2d echo - Consulted cardiology, negative stress test Right knee with swelling - possible gout - arthocenthesis done in the ER with + white count - cont tylenol as needed for pain, started on colchicine - elevated uric acid level Physical debility. consulted PT, recommended JHON DVT prophylaxis, with coumadin Disposition: Patient discharged to SNF but appealed discharge. Patient needs to go to SNF on thursday she refused to give her check but today she agreed with that to go to SNF likely tomorrow. Appeal rejected. - Patient Problems (1) Right knee pain Current Visit: Yes Status: Acute (2) Sepsis Current Visit: Yes Status: Acute (3) UTI (urinary tract infection) Current Visit: Yes Status: Acute (4) Elevated troponin Current Visit: Yes Status: Acute History Interval history: patient was seen and evaluated this morning, no new complaints. patient is doing well. Hospitalist Physical - Physical exam Narrative exam: Not in cardiopulmonary distress. The patient appeared well nourished and normally developed. Vital signs as documented. Head exam is unremarkable. No scleral icterus . Neck is without jugular venous distension, thyromegaly, or carotid bruits. Lungs are clear to auscultation. Cardiac exam reveals regular rate and Rhythm. First and second heart sounds normal. No murmurs, rubs or gallops. Abdominal exam reveals normal bowel sounds, no masses, no organomegaly and no aortic enlargement. Extremities are nonedematous and both femoral and pedal pulses are normal. 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 Right-sided hemiparesis. - Constitutional Vitals: Temp Pulse Resp BP Pulse Ox 98.6 F 74 19 125/53 94 08/08/17 21:12 08/09/17 07:23 08/09/17 07:23 08/09/17 07:23 08/09/17 07:23 General appearance: Present: no acute distress, mild distress Results - Labs CBC & Chem 7: 08/01/17 12:17 08/06/17 06:29 Labs: Laboratory Last Values WBC 8.8 K/mm3 (4.5-11.0) 08/01/17 12:17 RBC 3.91 M/mm3 (3.65-5.03) 08/01/17 12:17 Hgb 9.8 gm/dl (10.1-14.3) L 08/01/17 12:17 Hct 29.7 % (30.3-42.9) L 08/01/17 12:17 MCV 76 fl (79-97) L 08/01/17 12:17 MCH 25 pg (28-32) L 08/01/17 12:17 MCHC 33 % (30-34) 08/01/17 12:17 RDW 14.8 % (13.2-15.2) 08/01/17 12:17 Plt Count 315 K/mm3 (140-440) 08/01/17 12:17 Lymph % (Auto) 11.8 % (13.4-35.0) L 07/30/17 06:06 [place] % (Auto) 8.8 % (0.0-7.3) H 07/30/17 06:06 Eos % (Auto) 0.3 % (0.0-4.3) 07/30/17 06:06 Baso % (Auto) 0.2 % (0.0-1.8) 07/30/17 06:06 Lymph # 1.3 K/mm3 (1.2-5.4) 07/30/17 06:06 [place] # 0.9 K/mm3 (0.0-0.8) H 07/30/17 06:06 Eos # 0.0 K/mm3 (0.0-0.4) 07/30/17 06:06 Baso # 0.0 K/mm3 (0.0-0.1) 07/30/17 06:06 Seg Neutrophils % 78.9 % (40.0-70.0) H 07/30/17 06:06 Seg Neutrophils # 8.4 K/mm3 (1.8-7.7) H 07/30/17 06:06 PT 32.4 Sec. (12.2-14.9) H 08/09/17 05:40 INR 2.91 (0.87-1.13) H 08/09/17 05:40 Sodium 140 mmol/L (137-145) 08/06/17 06:29 Potassium 3.6 mmol/L (3.6-5.0) 08/06/17 06:29 Chloride 102.9 mmol/L (98-107) 08/06/17 06:29 Carbon Dioxide 26 mmol/L (22-30) 08/06/17 06:29 Anion Gap 15 mmol/L 08/06/17 06:29 BUN 17 mg/dL (7-17) 08/06/17 06:29 Creatinine 0.8 mg/dL (0.7-1.2) 08/06/17 06:29 Estimated GFR > 60 ml/min 08/06/17 06:29 BUN/Creatinine Ratio 21 % 08/06/17 06:29 Glucose 126 mg/dL (65-100) H 08/06/17 06:29 POC Glucose 139 (70-105) H 08/09/17 11:37 Hemoglobin A1c 5.3 % (4-6) 07/30/17 06:06 Lactic Acid 0.70 mmol/L (0.7-2.0) 07/29/17 23:22 Uric Acid 9.5 mg/dL (3.5-7.6) H 07/31/17 19:16 Calcium 8.6 mg/dL (8.4-10.2) 08/06/17 06:29 Total Bilirubin 0.50 mg/dL (0.1-1.2) 07/30/17 06:06 AST 19 units/L (5-40) 07/30/17 06:06 ALT 14 units/L (7-56) 07/30/17 06:06 Alkaline Phosphatase 36 units/L (35-129) 07/30/17 06:06 Troponin T 0.062 ng/mL (0.00-0.029) H 07/30/17 14:40 C-Reactive Protein 20.00 mg/dL (0.00-1.30) H 07/31/17 19:16 Total Protein 6.7 g/dL (6.3-8.2) 07/30/17 06:06 Albumin 3.4 g/dL (3.9-5) L 07/30/17 06:06 Albumin/Globulin Ratio 1.0 % 07/30/17 06:06 Triglycerides 196 mg/dL (2-149) H 07/29/17 18:53 Cholesterol 226 mg/dL (50-199) H 07/29/17 18:53 LDL Cholesterol Direct 149 mg/dL (50-130) H 07/29/17 18:53 HDL Cholesterol 34 mg/dL (40-59) L 07/29/17 18:53 Cholesterol/HDL Ratio 6.64 % 07/29/17 18:53 Urine Color Yellow (Yellow) 07/29/17 18:47 Urine Turbidity Clear (Clear) 07/29/17 18:47 Urine pH 6.0 (5.0-7.0) 07/29/17 18:47 Ur Specific [place] 1.014 (1.003-1.030) 07/29/17 18:47 Urine Protein <15 mg/dl mg/dL (Negative) 07/29/17 18:47 Urine Glucose (UA) 50 mg/dL (Negative) 07/29/17 18:47 Urine Ketones Neg mg/dL (Negative) 07/29/17 18:47 Urine Blood Sm (Negative) 07/29/17 18:47 Urine Nitrite Neg (Negative) 07/29/17 18:47 Urine Bilirubin Neg (Negative) 07/29/17 18:47 Urine Urobilinogen < 2.0 mg/dL (<2.0) 07/29/17 18:47 Ur Leukocyte Esterase Lg (Negative) 07/29/17 18:47 Urine WBC (Auto) 136.0 /HPF (0.0-6.0) H 07/29/17 18:47 Urine RBC (Auto) 3.0 /HPF (0.0-6.0) 07/29/17 18:47 U Epithel Cells (Auto) 11.0 /HPF (0-13.0) 07/29/17 18:47 Urine Bacteria (Auto) 1+ /HPF (Negative) 07/29/17 18:47 Urine WBC Clumps 2+ /HPF 07/29/17 18:47 Ur Transition Epith Cell 2 /HPF 07/29/17 18:47 Urine Mucus Few /HPF 07/29/17 18:47 Fluid Type Synovial 07/29/17 20:16 Fluid Color Yellow 07/29/17 20:16 Fluid Appearance Cloudy 07/29/17 20:16 Fluid WBC 2994 /mm3 07/29/17 20:16 Fluid RBC 156 /mm3 07/29/17 20:16 Fluid Seg Neutrophils 89.0 % 07/29/17 20:16 Fluid Lymphocytes 3.0 % 07/29/17 20:16 Fluid Reactive Lymphs 0 % 07/29/17 20:16 Fluid Monocytes 8.0 % 07/29/17 20:16 Fluid Eosinophils 0 % 07/29/17 20:16 Fluid Basophils 0 % 07/29/17 20:16 Fluid Glucose 162 mg/dL (40-70) H 07/29/17 20:16
[2017-08-09] MEDS ORDERED: COUMADIN PO SCH (17:00)
[2017-08-09] MEDS: AMBIEN PO PRN (21:53)
[2017-08-09] MEDS: TRICOR PO SCH (21:56)
[2017-08-10] MEDS: APRESOLINE PO SCH ×3 (06:26→22:55)
[2017-08-10 06:42] LABS: INR 3.1 (0.87-1.13)
[2017-08-10] MEDS: HumuLIN R SUB-Q SCH ×4 (08:36→23:02)
[2017-08-10] MEDS: COLCRYS PO SCH ×2 (09:23→22:57)
[2017-08-10] MEDS: HALFPRIN EC PO SCH (09:23)
[2017-08-10] MEDS: PEPCID PO SCH ×2 (09:23→22:56)
[2017-08-10] MEDS: NORVASC PO SCH (09:23)
[2017-08-10] MEDS: NORMODYNE PO SCH ×2 (09:23→22:50)
[2017-08-10] MEDS: SODIUM CHLORIDE FLUSH SYRINGE 10 ML IV SCH ×2 (09:28→23:04)
--- NOTE | 2017-08-10 14:43 | Progress Note ---
Assessment and Plan Assessment and plan: 61-year-old female with a history of hypertension, CVA with leftt-sided weakness presented to the hospital with fever and dysuria. Not to have right knee swelling and UTI. Started on abx and s/p arthocethesis of the right knee in the ER. Sepsis likely due to urinary tract infection -Finished seven-day course of IV Rocephin, urine culture growing gm negative rods, pansensitive - blood cx negative -ID consult appreciated Hypertension,increased dose of labetelol, will cont to hold ACEI for JYOTSNA Old CVA with right hemiparesis, ordered PT eval, need JHON - cont aspirin, lipitor and coumadin resumed per cardiology recommendation Diabetes mellitus type 2, ADA diet, SSI, A1c 5.3 JYOTSNA treated with IV fluids - Resolved Hypokalemia, repleted and monitor Elevated troponin, likely due to declining renal function and sepsis - Continue aspirin and Lipitor - preserved Ef on 2d echo - Consulted cardiology, negative stress test Right knee with swelling - possible gout - arthocenthesis done in the ER with + white count - cont tylenol as needed for pain, started on colchicine - elevated uric acid level Physical debility. consulted PT, recommended JHON DVT prophylaxis, with coumadin Disposition: Patient discharged to SNF but appealed discharge. Patient needs to go to SNF on thursday but she refused to give her check , today she agreed with that to go to SNF. Appeal rejected. Discussed with case management. - Patient Problems (1) Right knee pain Current Visit: Yes Status: Acute (2) Sepsis Current Visit: Yes Status: Acute (3) UTI (urinary tract infection) Current Visit: Yes Status: Acute (4) Elevated troponin Current Visit: Yes Status: Acute History Interval history: patient was seen and evaluated this morning, no new complaints. patient is doing well. Hospitalist Physical - Physical exam Narrative exam: Not in cardiopulmonary distress. The patient appeared well nourished and normally developed. Vital signs as documented. Head exam is unremarkable. No scleral icterus . Neck is without jugular venous distension, thyromegaly, or carotid bruits. Lungs are clear to auscultation. Cardiac exam reveals regular rate and Rhythm. First and second heart sounds normal. No murmurs, rubs or gallops. Abdominal exam reveals normal bowel sounds, no masses, no organomegaly and no aortic enlargement. Extremities are nonedematous and both femoral and pedal pulses are normal. 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 Right-sided hemiparesis. - Constitutional Vitals: Temp Pulse Resp BP Pulse Ox 98.8 F 79 16 110/60 99 08/10/17 07:37 08/10/17 13:50 08/10/17 13:50 08/10/17 13:50 08/10/17 13:50 General appearance: Present: no acute distress, mild distress Results - Labs CBC & Chem 7: 08/01/17 12:17 08/06/17 06:29 Labs: Laboratory Last Values WBC 8.8 K/mm3 (4.5-11.0) 08/01/17 12:17 RBC 3.91 M/mm3 (3.65-5.03) 08/01/17 12:17 Hgb 9.8 gm/dl (10.1-14.3) L 08/01/17 12:17 Hct 29.7 % (30.3-42.9) L 08/01/17 12:17 MCV 76 fl (79-97) L 08/01/17 12:17 MCH 25 pg (28-32) L 08/01/17 12:17 MCHC 33 % (30-34) 08/01/17 12:17 RDW 14.8 % (13.2-15.2) 08/01/17 12:17 Plt Count 315 K/mm3 (140-440) 08/01/17 12:17 Lymph % (Auto) 11.8 % (13.4-35.0) L 07/30/17 06:06 [place] % (Auto) 8.8 % (0.0-7.3) H 07/30/17 06:06 Eos % (Auto) 0.3 % (0.0-4.3) 07/30/17 06:06 Baso % (Auto) 0.2 % (0.0-1.8) 07/30/17 06:06 Lymph # 1.3 K/mm3 (1.2-5.4) 07/30/17 06:06 [place]comb # 0.9 K/mm3 (0.0-0.8) H 07/30/17 06:06 Eos # 0.0 K/mm3 (0.0-0.4) 07/30/17 06:06 Baso # 0.0 K/mm3 (0.0-0.1) 07/30/17 06:06 Seg Neutrophils % 78.9 % (40.0-70.0) H 07/30/17 06:06 Seg Neutrophils # 8.4 K/mm3 (1.8-7.7) H 07/30/17 06:06 PT 34.1 Sec. (12.2-14.9) H 08/10/17 06:13 INR 3.10 (0.87-1.13) H 08/10/17 06:13 Sodium 140 mmol/L (137-145) 08/06/17 06:29 Potassium 3.6 mmol/L (3.6-5.0) 08/06/17 06:29 Chloride 102.9 mmol/L (98-107) 08/06/17 06:29 Carbon Dioxide 26 mmol/L (22-30) 08/06/17 06:29 Anion Gap 15 mmol/L 08/06/17 06:29 BUN 17 mg/dL (7-17) 08/06/17 06:29 Creatinine 0.8 mg/dL (0.7-1.2) 08/06/17 06:29 Estimated GFR > 60 ml/min 08/06/17 06:29 BUN/Creatinine Ratio 21 % 08/06/17 06:29 Glucose 126 mg/dL (65-100) H 08/06/17 06:29 POC Glucose 131 (70-105) H 08/10/17 11:55 Hemoglobin A1c 5.3 % (4-6) 07/30/17 06:06 Lactic Acid 0.70 mmol/L (0.7-2.0) 07/29/17 23:22 Uric Acid 9.5 mg/dL (3.5-7.6) H 07/31/17 19:16 Calcium 8.6 mg/dL (8.4-10.2) 08/06/17 06:29 Total Bilirubin 0.50 mg/dL (0.1-1.2) 07/30/17 06:06 AST 19 units/L (5-40) 07/30/17 06:06 ALT 14 units/L (7-56) 07/30/17 06:06 Alkaline Phosphatase 36 units/L (35-129) 07/30/17 06:06 Troponin T 0.062 ng/mL (0.00-0.029) H 07/30/17 14:40 C-Reactive Protein 20.00 mg/dL (0.00-1.30) H 07/31/17 19:16 Total Protein 6.7 g/dL (6.3-8.2) 07/30/17 06:06 Albumin 3.4 g/dL (3.9-5) L 07/30/17 06:06 Albumin/Globulin Ratio 1.0 % 07/30/17 06:06 Triglycerides 196 mg/dL (2-149) H 07/29/17 18:53 Cholesterol 226 mg/dL (50-199) H 07/29/17 18:53 LDL Cholesterol Direct 149 mg/dL (50-130) H 07/29/17 18:53 HDL Cholesterol 34 mg/dL (40-59) L 07/29/17 18:53 Cholesterol/HDL Ratio 6.64 % 07/29/17 18:53 Urine Color Yellow (Yellow) 07/29/17 18:47 Urine Turbidity Clear (Clear) 07/29/17 18:47 Urine pH 6.0 (5.0-7.0) 07/29/17 18:47 Ur Specific [place] 1.014 (1.003-1.030) 07/29/17 18:47 Urine Protein <15 mg/dl mg/dL (Negative) 07/29/17 18:47 Urine Glucose (UA) 50 mg/dL (Negative) 07/29/17 18:47 Urine Ketones Neg mg/dL (Negative) 07/29/17 18:47 Urine Blood Sm (Negative) 07/29/17 18:47 Urine Nitrite Neg (Negative) 07/29/17 18:47 Urine Bilirubin Neg (Negative) 07/29/17 18:47 Urine Urobilinogen < 2.0 mg/dL (<2.0) 07/29/17 18:47 Ur Leukocyte Esterase Lg (Negative) 07/29/17 18:47 Urine WBC (Auto) 136.0 /HPF (0.0-6.0) H 07/29/17 18:47 Urine RBC (Auto) 3.0 /HPF (0.0-6.0) 07/29/17 18:47 U Epithel Cells (Auto) 11.0 /HPF (0-13.0) 07/29/17 18:47 Urine Bacteria (Auto) 1+ /HPF (Negative) 07/29/17 18:47 Urine WBC Clumps 2+ /HPF 07/29/17 18:47 Ur Transition Epith Cell 2 /HPF 07/29/17 18:47 Urine Mucus Few /HPF 07/29/17 18:47 Fluid Type Synovial 07/29/17 20:16 Fluid Color Yellow 07/29/17 20:16 Fluid Appearance Cloudy 07/29/17 20:16 Fluid WBC 2994 /mm3 07/29/17 20:16 Fluid RBC 156 /mm3 07/29/17 20:16 Fluid Seg Neutrophils 89.0 % 07/29/17 20:16 Fluid Lymphocytes 3.0 % 07/29/17 20:16 Fluid Reactive Lymphs 0 % 07/29/17 20:16 Fluid Monocytes 8.0 % 07/29/17 20:16 Fluid Eosinophils 0 % 07/29/17 20:16 Fluid Basophils 0 % 07/29/17 20:16 Fluid Glucose 162 mg/dL (40-70) H 07/29/17 20:16
[2017-08-10] MEDS ORDERED: COUMADIN PO SCH (17:00)
[2017-08-10] MEDS: TRICOR PO SCH (22:57)
[2017-08-10] MEDS: AMBIEN PO PRN (23:02)
[2017-08-11] MEDS: APRESOLINE PO SCH (06:31)
[2017-08-11 07:11] LABS: INR 2.74 (0.87-1.13)
[2017-08-11 07:58] VITALS: BP 127/57
[2017-08-11] MEDS: HumuLIN R SUB-Q SCH (08:12)
--- NOTE | 2017-08-11 08:46 | Discharge Summary ---
Providers - Providers Date of Admission: 07/29/17 22:00 Attending physician: LESLIE MCNAIR MD 07/30/17 Consult to Case Management [CONS] Routine Services Needed at Discharge: Home Health Services Notified:: rn case management 07/30/17 14:32 Physical Therapy Evaluation and Treat [CONS] Routine Comment: Reason For Exam: generalized weakness 07/31/17 12:07 Consult to Physician [CONS] Routine Comment: Consulting Provider: RENATO LLANOS Physician Instructions: Reason For Exam: fever Primary care physician: [facility] [employer] Hospitalization Reason for admission: SEPSIS Condition: Stable Hospital course: 61-year-old female with a history of hypertension, CVA with leftt-sided weakness presented to the hospital with fever and dysuria. Not to have right knee swelling and UTI. Started on abx and s/p arthocethesis of the right knee in the ER. Patient was treated with even-day course of IV Rocephin, urine culture growing gm negative rods, pansensitive AND was also seen ID. she had a negative cardiac stress test and no further recommendation was noted by cardiology, echo showed persevered EF. JOSE LUIS Was held due to JYOTSNA and BB increased. Outpatient follow up by PCP was recommended. SHE was noted to have gout manifested in the right knee and was started initially on coLchine, held due to renal function. Discharge was done by my collegue and i was only able to see the patient as she was being wheeled out. Sepsis likely due to urinary tract infection Hypertension, Right hemiparesis Secondary to Old CVA Diabetes mellitus type 2, JYOTSNA secondary to vasomotor nephropathy Hypokalemia, Type 2 UT due to sepsis and JYOTSNA Right knee gout Disposition: [id number] SNF [facility] CERT Time spent for discharge: 35 MINS Core Measure Documentation - Palliative Care Palliative Care/ Comfort Measures: Not Applicable - Core Measures Any of the following diagnoses?: none - VTE Discharge Requirements Deep Vein Thrombosis/Pulmonary Embolism Present on Admission: No Exam - Physical Exam Narrative exam: Not in cardiopulmonary distress. The patient appeared well nourished and normally developed. Vital signs as documented. Head exam is unremarkable. No scleral icterus . Neck is without jugular venous distension, thyromegaly, or carotid bruits. Lungs are clear to auscultation. Cardiac exam reveals regular rate and Rhythm. First and second heart sounds normal. No murmurs, rubs or gallops. Abdominal exam reveals normal bowel sounds, no masses, no organomegaly and no aortic enlargement. Extremities are nonedematous and both femoral and pedal pulses are normal. 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 Right-sided hemiparesis. - Constitutional Vitals: Temp Pulse Resp BP Pulse Ox 98.9 F 88 18 127/57 97 08/11/17 07:51 08/11/17 07:51 08/11/17 07:51 08/11/17 07:51 08/11/17 07:51 Plan Activity: advance as tolerated, fall precautions Diet: low salt, per dietitian instruction Follow up with: PRIMARY CARE, [Primary Care Provider] - 3-5 Days REDDY KAY MD [Staff Physician] - 7 Days (08/10/17 at 2:00 p.m. in [place] [facility] ) Forms: Warfarin Discharge Instruction Prescriptions: oxyCODONE /ACETAMINOPHEN [Percocet 5/325 mg] 1 tab PO Q6H PRN #14 tablet PRN Reason: Pain, Moderate (4-6)
[2017-08-11] MEDS ORDERED: COUMADIN PO SCH (17:00)
== END 2017-08-11 09:30 | DRG 871 ==
LOC: ED 17:00 → 4A 22:00 → 3A 08-07 11:42
PROVIDERS: ADMIT Internal Medicine; ATTEND Internal Medicine
PROC: 0S9C3ZZ Drainage of Right Knee Joint, Percutaneous Approach (ICD-10-PCS; principal; 2017-07-29)
DX: A41.9 Sepsis, unspecified organism (principal); I21.A1 Myocardial infarction type 2; N17.0 Acute kidney failure with tubular necrosis; N39.0 Urinary tract infection, site not specified; I69.354 Hemiplegia and hemiparesis following cerebral infarction affecting left non-dominant side; M10.061 Idiopathic gout, right knee; E11.9 Type 2 diabetes mellitus without complications; I10 Essential (primary) hypertension; E87.6 Hypokalemia; B96.20 Unspecified Escherichia coli [E. coli] as the cause of diseases classified elsewhere; Z87.891 Personal history of nicotine dependence
CPT/HCPCS: 36415; 71045; 76770; 78452; 80048; 80053; 80061; 81001; 82140; 82947; 82962; 83036; 84484; 84550; 85025; 85027; 85610; 86140; 87040; 87076; 87086; 87116; 87186; 89051; 93005; 93010; 93017; 93306; 96361; 96365; 96367; 96375; A9270-GY; A9502; G8978-GP; G8979-GP; J0696; J1815; J1885; J2543; J2785; J3370; J7030